=== PATIENT | female | born 1950 | race African-American/Black ===

== ENCOUNTER 2016-10-26 15:08 | Emergency (ER) | payer OTHER, BC ==
[2016-10-26 15:12] VITALS: BP 197/88; PULSE 65; TEMP 98; BMI 54.6
--- NOTE | 2016-10-26 15:26 | PDOC ---
History of Present Illness - General History Source: Patient Exam Limitations: No Limitations - History of Present Illness Initial Comments: 10/26/16 16:38 The patient is a 66 year old female, with a significant past medical history of Atrial Fibrillation (On Coumadin), HTN, NIDDM, who presents to the emergency department with abdominal pain and vomiting. The patient was seen in ER last night and was evaluated however refused CT scan and was discharged after taking Pepcid and Zofran. The patient states her pain has returned and progressively worsened. The patient reports 2 vomiting episodes. The patient presents to the ED for further evaluation. She denies chest pain, headache or dizziness. She denies fever, chills, diarrhea or constipation. She denies dysuria, frequency, urgency or hematuria. <Merary Walker - Last Filed: 10/26/16 16:38> <Cynthia Kruse - Last Filed: 10/26/16 18:08> <Brett Stubbs - Last Filed: 10/26/16 20:48> <Jacinda Tipton - Last Filed: 10/26/16 21:17> - General Chief Complaint: Pain Stated Complaint: REVISIT/ ABD PAIN Time Seen by Provider: 10/26/16 15:26 Past History <Merary Walker - Last Filed: 10/26/16 16:38> - Past Medical History Anemia: Yes Asthma: No Cancer: No Cardiac Disorders: Yes (HISTORY OF AFIB WITH CARDIOVERSION) CVA: No COPD: (SLEEP APNEA) CHF: No Dementia: No Diabetes: Yes GI Disorders: Yes (REFLUX,ESOPHAGITIS,HIATAL HERNIA) Disorders: No HTN: Yes Hypercholesterolemia: No Liver Disease: No Seizures: No Thyroid Disease: No Other medical history: obesity - Surgical History Abdominal Surgery: No Appendectomy: No Cardiac Surgery: No Cholecystectomy: No Lung Surgery: No Neurologic Surgery: No Orthopedic Surgery: Yes (ARMOND KNEE REPLACEMENT) - Psycho/Social/Smoking Cessation Hx Anxiety: No Suicidal Ideation: No Smoking Status: No Smoking History: Never smoked Have you smoked in the past 12 months: No Number of Cigarettes Smoked Daily: 0 Information on smoking cessation initiated: No Hx Alcohol Use: Yes (occasional) Drug/Substance Use Hx: No Substance Use Type: None Hx Substance Use Treatment: No <Cynthia Kruse - Last Filed: 10/26/16 18:08> <Brett Stubbs - Last Filed: 10/26/16 20:48> <Jacinda Tipton - Last Filed: 10/26/16 21:17> - Past Medical History Allergies/Adverse Reactions: Allergies Allergy/AdvReac Type Severity Reaction Status Date / Time No Known Allergies Allergy Verified 10/26/16 15:12 Home Medications: Ambulatory Orders Hydrochlorothiazide [Hctz -] 25 mg PO DAILY 03/16/12 Metformin HCl [Glucophage -] 500 mg PO DAILY 12/02/13 Atenolol [Tenormin -] 25 mg PO DAILY 04/21/15 Atorvastatin Ca [Lipitor] 40 mg PO DAILY 04/21/15 Warfarin Sodium 6 mg PO ASDIR 01/19/16 Warfarin Sodium 9 mg PO ASDIR 01/19/16 Diltiazem Cd [Cardizem Cd -] 120 mg PO BID 08/21/16 Famotidine [Pepcid -] 20 mg PO BID #14 tablet 10/26/16 Ibuprofen 600 mg PO QID PRN #30 tablet 10/26/16 Ondansetron [Zofran *Odt*] 8 mg SL TID PRN #15 od.tablet 10/26/16 Ondansetron [Zofran Odt -] 4 mg SL BID PRN #14 od.tablet 10/26/16 Pantoprazole Sodium [Protonix] 40 mg PO DAILY #30 tablet. 10/26/16 Review of Systems - Review of Systems Able to Perform ROS?: Yes Comments:: 10/26/16 16:39 Constitutional - Pt denies Fever, Chills, weakness, HEENT: Denies vision changes, sore throat RESPIRATORY: Denies cough, sob, hemoptysis CARDIAC: Denies chest pain, palpitations, light headedness, leg swelling ABD/GI: + abd pain, nausea, vomiting. Denies blood per rectum, melena, diarrhea : Denies dysuria, frequency, discharge MUSCULOSKELETAL - Denies back pain, joint swelling SKIN - Denies bruising, erythema, rash NEUROLOGICAL: Denies headache, numbness, focal weakness, tingling, ataxia, weakness HEMATOLOGIC: Denies anemia, easy bruising, easy bleeding <Merary Walker - Last Filed: 10/26/16 16:38> *Physical Exam - Vital Signs Last Vital Signs Temp Pulse Resp BP Pulse Ox 98 F 65 18 197/88 96 10/26/16 15:10 10/26/16 15:10 10/26/16 15:10 10/26/16 15:10 10/26/16 15:10 - Physical Exam Comments: 10/26/16 16:39 GENERAL: The patient is awake, alert, and fully oriented, Nontoxic - in no acute distress. HEAD: Normocephalic, atraumatic. EYES: Extraocular movements intact, sclera anicteric, conjunctiva clear. ENT: Normal voice, moist mucous membranes. NECK: Normal range of motion, supple without lymphadenopathy, JVD, or masses. LUNGS: Breath sounds equal, clear to auscultation bilaterally. No wheezes, no crackles, no rales. HEART: Regular rate and rhythm, normal S1 and S2 without murmur, rub or gallop. ABDOMEN: +LUQ discomfort. +Epigastric discomfort. No guarding, no rebound. No masses. EXTREMITIES: Normal range of motion, no edema. No clubbing or cyanosis. No cords , erythema, or tenderness. NEUROLOGICAL: Fully Oriented, Alert, Normal Mood/Affect, Motor Strength 5/5. No facial asymmetry, Normal speech. SKIN: Warm, Dry, normal turgor, no rashes or lesions noted. <Merary Walker - Last Filed: 10/26/16 16:38> - Vital Signs Last Vital Signs Temp Pulse Resp BP Pulse Ox 98 F 65 18 197/88 96 10/26/16 15:10 10/26/16 15:10 10/26/16 15:10 10/26/16 15:10 10/26/16 15:10 <Cynthia Kruse - Last Filed: 10/26/16 18:08> - Vital Signs Last Vital Signs Temp Pulse Resp BP Pulse Ox 98 F 65 18 197/88 96 10/26/16 15:10 10/26/16 15:10 10/26/16 15:10 10/26/16 15:10 10/26/16 15:10 <Brett Stubbs - Last Filed: 10/26/16 20:48> - Vital Signs Last Vital Signs Temp Pulse Resp BP Pulse Ox 98 F 65 18 197/88 96 10/26/16 15:10 10/26/16 15:10 10/26/16 15:10 10/26/16 15:10 10/26/16 15:10 <Jacinda Tipton - Last Filed: 10/26/16 21:17> ED Treatment Course - LABORATORY CBC & Chemistry Diagram: 10/26/16 15:46 10/26/16 15:46 - ADDITIONAL ORDERS Additional order review: Laboratory Results 10/26/16 10/26/16 15:46 15:46 INR 1.78 H Sodium Cancelled Potassium Cancelled Chloride Cancelled Carbon Dioxide Cancelled Anion Gap Cancelled BUN Cancelled Creatinine Cancelled Creat Clearance w eGFR Cancelled Random Glucose Cancelled Calcium Cancelled Total Bilirubin Cancelled AST Cancelled ALT Cancelled Alkaline Phosphatase Cancelled Total Protein Cancelled Albumin Cancelled 10/26/16 15:46 RBC 3.94 MCV 96.1 H MCHC 33.1 RDW 14.1 MPV 8.8 Neutrophils % 77.4 Lymphocytes % 15.0 D Monocytes % 6.7 D Eosinophils % 0.1 Basophils % 0.8 <Merary Walker - Last Filed: 10/26/16 16:38> - LABORATORY CBC & Chemistry Diagram: 10/26/16 15:46 10/26/16 16:31 <Cynthia Kruse - Last Filed: 10/26/16 18:08> - LABORATORY CBC & Chemistry Diagram: 10/26/16 15:46 10/26/16 16:31 - ADDITIONAL ORDERS Additional order review: Laboratory Results 10/26/16 10/26/16 10/26/16 16:31 15:46 15:46 INR 1.78 H Sodium 143 Cancelled Potassium 3.5 Cancelled Chloride 103 Cancelled Carbon Dioxide 29 Cancelled Anion Gap 11 Cancelled BUN 14 Cancelled Creatinine 0.8 Cancelled Creat Clearance w eGFR > 60 Cancelled Random Glucose 124 H Cancelled Calcium 9.1 Cancelled Total Bilirubin 0.7 Cancelled AST 24 Cancelled ALT 24 Cancelled Alkaline Phosphatase 73 Cancelled Total Protein 7.4 Cancelled Albumin 3.6 Cancelled Total Amylase 51 Lipase 86 10/26/16 15:46 RBC 3.94 MCV 96.1 H MCHC 33.1 RDW 14.1 MPV 8.8 Neutrophils % 77.4 Lymphocytes % 15.0 D Monocytes % 6.7 D Eosinophils % 0.1 Basophils % 0.8 - Medications Given in the ED: ED Medications Discontinued Medications Generic Name Dose Route Start Last Admin Trade Name Wiliam PRN Reason Stop Dose Admin Pantoprazole Sodium 40 mg/ 100 mls @ 200 mls/hr 10/26/16 16:43 10/26/16 16:53 Sodium Chloride IVPB 10/26/16 17:12 200 mls/hr ONCE ONE Administration <Brett Stubbs - Last Filed: 10/26/16 20:48> - LABORATORY CBC & Chemistry Diagram: 10/26/16 15:46 10/26/16 16:31 - ADDITIONAL ORDERS Additional order review: Laboratory Results 10/26/16 10/26/16 10/26/16 16:31 15:46 15:46 INR 1.78 H Sodium 143 Cancelled Potassium 3.5 Cancelled Chloride 103 Cancelled Carbon Dioxide 29 Cancelled Anion Gap 11 Cancelled BUN 14 Cancelled Creatinine 0.8 Cancelled Creat Clearance w eGFR > 60 Cancelled Random Glucose 124 H Cancelled Calcium 9.1 Cancelled Total Bilirubin 0.7 Cancelled AST 24 Cancelled ALT 24 Cancelled Alkaline Phosphatase 73 Cancelled Total Protein 7.4 Cancelled Albumin 3.6 Cancelled Total Amylase 51 Lipase 86 10/26/16 15:46 RBC 3.94 MCV 96.1 H MCHC 33.1 RDW 14.1 MPV 8.8 Neutrophils % 77.4 Lymphocytes % 15.0 D Monocytes % 6.7 D Eosinophils % 0.1 Basophils % 0.8 - RADIOLOGY Radiograph Interpretation: 10/26/16 20:40 Copy Machine Operator: (charisse) Report Date: 10/26/2016 18:42:00 Report Status: Preliminary Begin of Report Content Referring Physician: Brett Stubbs Patient Name: Leandro Chatman THIS IS A PRELIMINARY REPORT FROM [facility] DATE OF SERVICE: 2016-10-26 18:42:18.0 I MAGES: [id number] EXAM: CT ABDOMEN AND PELVIS WITHOUT CONTRAST REASON FOR EXAM: Abdominal pain right side COMPARISON: None FINDINGS: Lower lung isaac are clear. There are no gallstones identified. Fatty liver. The pancreas, spleen and adrenal glands are grossly unremarkable given the limitation of this non contrast exam. 2 mm punctate lower pole left renal stone. The 7 x 5 x 9 mm proximal right ureteral stone resulting in moderate to severe hydroureteronephrosis at the level of L3-4. Large 9 x 14 x 17 mm stone within the lower pole of right kidney. Prominent right extra renal pelvis. Abdominal aorta without AAA. There is no retroperitoneal hemorrhage The appendix is normal. Evaluation of the GI tract is limited without oral contrast. No evidence of bowel obstruction, ascites, abscess, free air or diverticulitis. Bladder unremarkable. Lumbar spine and bony pelvis are intact. IMPRESSION: 7 x 5 x 9 mm proximal right ureteral stone resulting in moderate to severe hydroureteronephrosis at the level of L3-4. Punctate left renal stone. Large 14 mm right renal stone. Appendix is normal. Fatty liver. THIS DOCUMENT HAS BEEN ELECTRONICALLY SIGNED Jana Velasco D.O. 10/26/2016 19:29 SELENA Corado Please call [facility] [phone] ([phone]) with questions. End of Report Content 10/26/16 21:16 - Medications Given in the ED: ED Medications Discontinued Medications Generic Name Dose Route Start Last Admin Trade Name Santoq PRN Reason Stop Dose Admin Pantoprazole Sodium 40 mg/ 100 mls @ 200 mls/hr 10/26/16 16:43 10/26/16 16:53 Sodium Chloride IVPB 10/26/16 17:12 200 mls/hr ONCE ONE Administration Ketorolac Tromethamine 30 mg 10/26/16 20:19 10/26/16 20:37 Toradol Injection - IVPUSH 10/26/16 20:20 30 mg ONCE ONE Administration Ondansetron HCl 4 mg 10/26/16 20:18 10/26/16 20:36 Zofran Injection IVPUSH 10/26/16 20:19 4 mg ONCE ONE Administration <Jacinda Tipton - Last Filed: 10/26/16 21:17> Medical Decision Making - Medical Decision Making 10/26/16 16:48 I, Dr. Cynthia Kruse, attest that the scribes documentation that appears above has been prepared under my direction and personally reviewed by me. I confirmed that the note above accurately reflects all work, treatment, procedures, and medical decision-making performed by me. 10/26/16 18:08 Pt seen and examined at bedside still c/o left upper quadrant pain radiating to her back, pt was in ed last night with same complaints, labs and chart from last night reviewed. CBC from today unchanged from last night, chemistries, amylase and lipase pending. Sonogram ordered to evaluate for gallstones, pt's pain may be from her pancreas. Case endorsed to oncoming physician to f/u pending labs, sonogram and make final disposition. <Cynthia Kruse - Last Filed: 10/26/16 18:08> - Medical Decision Making 10/26/16 20:[address] Garcia who wants to see her in the office Friday or Friday. she can return if worse. <Brett Stubbs - Last Filed: 10/26/16 20:48> *DC/Admit/Observation/Transfer - Attestations Scribe Attestion: 10/26/16 16:39 Documentation prepared by Merary Walker, acting as medical aide for Cynthia Kruse MD <Merary Walker - Last Filed: 10/26/16 16:38> <Cynthia Kruse - Last Filed: 10/26/16 18:08> - Discharge Dispostion Admit: No <Brett Stubbs - Last Filed: 10/26/16 20:48> <Jacinda Tipton - Last Filed: 10/26/16 21:17> Diagnosis at time of Disposition: Biliary colic - Discharge Dispostion Disposition: HOME Condition at time of disposition: Stable - Prescriptions Prescriptions: Ibuprofen 600 mg PO QID PRN #30 tablet PRN Reason: Pain Pantoprazole Sodium [Protonix] 40 mg PO DAILY #30 tablet. Ondansetron [Zofran Odt -] 4 mg SL BID PRN #14 od.tablet PRN Reason: Nausea And/Or Vomiting - Referrals Referrals: Bobbi Fried MD [Primary Care Provider] - Sander Garcia MD [Staff Physician] - - Patient Instructions Printed Discharge Instructions: DI for Gallstones Additional Instructions: See Dr. Garcia on Friday or Friday in the office.
[2016-10-26 15:52] LABS: BASOPHIL 0.8 % (0-2.0); EOSINOPHIL 0.1 % (0-4.5); MCH 31.8 pg (25.7-33.7); MCHC 33.1 g/dl (32.0-36.0); MEAN CELL VOLUME 96.1 fl (80-96); MEAN PLT VOLUME 8.8 fl (7.5-11.1); NEUTROPHILS 77.4 % (42.8-82.8); PLATELET COUNT 220 K/MM3 (134-434); RDW 14.1 % (11.6-15.6); WHITE BLOOD COUNT 9.6 K/mm3 (4.0-10.0)
[2016-10-26 16:20] LABS: INR 1.78 (0.82-1.09); PROTHROMBIN TIME (PATIENT) 19.8 SEC (9.98-11.88)
[2016-10-26] MEDS ORDERED: PANTOPRAZOLE SODIUM 40 MG in SODIUM CHLORIDE 100 ML IVPB ONE (16:43)
[2016-10-26] MEDS ORDERED: PANTOPRAZOLE SODIUM 100 ML IVPB ONE (16:47)
[2016-10-26 17:02] LABS: ALBUMIN 3.6 g/dl (3.4-5.0); ALK PHOS 73 U/L (45-117); AMYLASE 51 U/L (25-115); ANION GAP 11 (8-16); BILIRUBIN,TOTAL 0.7 mg/dL (0.2-1.0); CALCIUM 9.1 mg/dL (8.5-10.1); CO2 29 mmol/L (21-32); CREATININE 0.8 mg/dL (0.55-1.02); GLUCOSE,RANDOM 124 mg/dL (74-106); SGOT/AST 24 U/L (15-37); SGPT/ALT 24 U/L (12-78); TOT PROT 7.4 g/dl (6.4-8.2)
[2016-10-26] MEDS ORDERED: ONDANSETRON 4 MG/2 ML VIAL IVPUSH ONE (20:18)
[2016-10-26] MEDS ORDERED: KETOROLAC TROMETHAMINE 30 MG/1 ML VIAL IVPUSH ONE (20:19)
[2016-10-26] MEDS ORDERED: KETOROLAC TROMETHAMINE 30 MG/1 ML VIAL ONE ×2 (20:28)
[2016-10-26] MEDS ORDERED: ONDANSETRON 4 MG/2 ML VIAL ONE (20:28)
== END 2016-10-26 21:10 | disposition home or self-care (01) ==
LOC: JER 15:08
PROC: 3E033GC Introduction of Other Therapeutic Substance into Peripheral Vein, Percutaneous Approach (ICD-10-PCS; principal; 2016-10-26)
PROC: 3E0333Z Introduction of Anti-inflammatory into Peripheral Vein, Percutaneous Approach (ICD-10-PCS; 2016-10-26)
PROC: 3E033GC Introduction of Other Therapeutic Substance into Peripheral Vein, Percutaneous Approach (ICD-10-PCS; 2016-10-26)
DX: K80.50 Calculus of bile duct without cholangitis or cholecystitis without obstruction (principal); I48.91 Unspecified atrial fibrillation; Z79.01 Long term (current) use of anticoagulants; I10 Essential (primary) hypertension; E11.9 Type 2 diabetes mellitus without complications; Z79.84 Long term (current) use of oral hypoglycemic drugs; K21.0 Gastro-esophageal reflux disease with esophagitis
CPT/HCPCS: 36415; 74020-TC; 76705-TC; 80053; 81003; 81015; 82150; 82550; 82553; 83690; 84484; 85025; 85610; 87086; 96365; 96375; 99281-25; 99282-25

== ENCOUNTER 2016-11-30 20:06 | Inpatient (IN) | payer OTHER, BC ==
[2016-11-30 20:14] VITALS: BMI 53.4
--- NOTE | 2016-11-30 20:16 | PDOC ---
[id number] No Limitations - History of Present Illness Initial Comments: 11/30/16 20:36 The patient is a 66 year old morbidly obese female, with a significant past medical history of Atrial Fibrillation (On Coumadin), HTN, NIDDM, who presents to the emergency department with nausea, vomiting since 2 PM. Patient states she only ate chicken soup during the day. Patient denies fever, chills, diarrhea, hematochezia. Denies abdominal pain, back pain. Patient states she is need of gall bladder removal surgery. She was here in October for abdominal pain. Gallstones were shown on Ultrasound exam. PCP: Dr. Fried <Erwin Vasquez - Last Filed: 11/30/16 22:45> <Mikala Mota - Last Filed: 12/07/16 20:38> - General Chief Complaint: Pain Stated Complaint: ABD PAIN Time Seen by Provider: 11/30/16 20:16 Past History <Erwin Vasquez - Last Filed: 11/30/16 22:45> - Past Medical History Anemia: Yes Asthma: No Cancer: No Cardiac Disorders: Yes (HISTORY OF AFIB WITH CARDIOVERSION) CVA: No COPD: (SLEEP APNEA) CHF: No Dementia: No Diabetes: Yes GI Disorders: Yes (REFLUX,ESOPHAGITIS,HIATAL HERNIA) Disorders: No HTN: Yes Hypercholesterolemia: No Liver Disease: No Seizures: No Thyroid Disease: No - Surgical History Abdominal Surgery: No Appendectomy: No Cardiac Surgery: No Cholecystectomy: No Lung Surgery: No Neurologic Surgery: No Orthopedic Surgery: Yes (ARMOND KNEE REPLACEMENT) - Psycho/Social/Smoking Cessation Hx Anxiety: No Suicidal Ideation: No Smoking Status: No Smoking History: Never smoked Have you smoked in the past 12 months: No Number of Cigarettes Smoked Daily: 0 Hx Alcohol Use: Yes (occasional) Drug/Substance Use Hx: No Substance Use Type: None Hx Substance Use Treatment: No <Mikala Mota - Last Filed: 12/07/16 20:38> - Past Medical History Allergies/Adverse Reactions: Allergies Allergy/AdvReac Type Severity Reaction Status Date / Time No Known Allergies Allergy Verified 11/30/16 20:14 Home Medications: Ambulatory Orders Hydrochlorothiazide [Hctz -] 25 mg PO DAILY 03/16/12 Metformin HCl [Glucophage -] 500 mg PO DAILY 12/02/13 Atenolol [Tenormin -] 25 mg PO DAILY 04/21/15 Atorvastatin Ca [Lipitor] 40 mg PO DAILY 04/21/15 Warfarin Sodium 6 mg PO ASDIR 01/19/16 Warfarin Sodium 9 mg PO ASDIR 01/19/16 Diltiazem Cd [Cardizem Cd -] 120 mg PO BID 08/21/16 Famotidine [Pepcid -] 20 mg PO BID #14 tablet 10/26/16 Ibuprofen 600 mg PO QID PRN #30 tablet 10/26/16 Ondansetron [Zofran *Odt*] 8 mg SL TID PRN #15 od.tablet 10/26/16 Ondansetron [Zofran Odt -] 4 mg SL BID PRN #14 od.tablet 10/26/16 Pantoprazole Sodium [Protonix] 40 mg PO DAILY #30 tablet. 10/26/16 Review of Systems - Review of Systems Able to Perform ROS?: Yes Comments:: 11/30/16 20:36 GENERAL/CONSTITUTIONAL: No fever or chills. No weakness. HEAD, EYES, EARS, NOSE AND THROAT: No change in vision. No ear pain or discharge. No sore throat. CARDIOVASCULAR: No chest pain or shortness of breath. RESPIRATORY: No cough, wheezing, or hemoptysis. GASTROINTESTINAL: + nausea, vomiting. No diarrhea or constipation. GENITOURINARY: No dysuria, frequency, or change in urination. MUSCULOSKELETAL: No joint or muscle swelling or pain. No neck or back pain. SKIN: No rash NEUROLOGIC: No headache, vertigo, loss of consciousness, or change in strength/ sensation. ENDOCRINE: No increased thirst. No abnormal weight change. HEMATOLOGIC/LYMPHATIC: No anemia, easy bleeding, or history of blood clots. ALLERGIC/IMMUNOLOGIC: No hives or skin allergy. <Erwin Vasquez - Last Filed: 11/30/16 22:45> *Physical Exam - Vital Signs Last Vital Signs Temp Pulse Resp BP Pulse Ox 97.3 F L 56 L 18 149/68 99 11/30/16 20:11 11/30/16 20:11 11/30/16 20:11 11/30/16 20:11 11/30/16 20:11 - Physical Exam Comments: 11/30/16 20:36 GENERAL: Awake, alert, and fully oriented, in no acute distress. Morbidly Obese HEAD: No signs of trauma EYES: PERRLA, EOMI, sclera anicteric, conjunctiva clear ENT: Auricles normal inspection, hearing grossly normal, nares patent, oropharynx clear without exudates. Moist mucosa NECK: Normal ROM, supple, no lymphadenopathy, JVD, or masses LUNGS: Breath sounds equal, clear to auscultation bilaterally. No wheezes, and no crackles HEART: Regular rate and rhythm, normal S1 and S2, no murmurs, rubs or gallops ABDOMEN: Soft, nontender, normoactive bowel sounds. No guarding, no rebound. No masses EXTREMITIES: Normal range of motion, no edema. No clubbing or cyanosis. No cords, erythema, or tenderness NEUROLOGICAL: Cranial nerves II through XII grossly intact. Normal speech, normal gait SKIN: Warm, Dry, normal turgor, no rashes or lesions noted. <Erwin Vasquez - Last Filed: 11/30/16 22:45> - Vital Signs Last Vital Signs Temp Pulse Resp BP Pulse Ox 97.3 F L 56 L 18 149/68 99 11/30/16 20:11 11/30/16 20:11 11/30/16 20:11 11/30/16 20:11 11/30/16 20:11 <Mikala Mota - Last Filed: 12/07/16 20:38> ED Treatment Course - LABORATORY CBC & Chemistry Diagram: 11/30/16 21:10 11/30/16 21:10 <Erwin Vasquez - Last Filed: 11/30/16 22:45> - LABORATORY CBC & Chemistry Diagram: 12/07/16 08:15 12/07/16 08:15 <Mikala Mota - Last Filed: 12/07/16 20:38> Medical Decision Making - Medical Decision Making 11/30/16 22:[address] Fried at 22:26. 11/30/16 22:[address] Fried at 22:38. <Erwin Vasquez - Last Filed: 11/30/16 22:45> - Medical Decision Making 12/07/16 20:35 Pt comes with N/V and abd pain. She was found to have pancreatitis; elevated lipase. Pt has hypokalemia. She has no signs of pseudocysts on imaging. She will be admitted to her PMD and she will be kept NPO and hydrated. Pain control. <Mikala Mota - Last Filed: 12/07/16 20:38> *DC/Admit/Observation/Transfer - Attestations Scribe Attestion: 11/30/16 20:37 Documentation prepared by Erwin Vasquez, acting as medical care evaluation specialist for Mikala Mota MD. <Erwin Vasquez - Last Filed: 11/30/16 22:45> - Discharge Dispostion Admit: Yes <Mikala Mota - Last Filed: 12/07/16 20:38> Diagnosis at time of Disposition: Vomiting, Atrial fibrillation Pancreatitis Qualifiers: Pancreatitis type: biliary - Discharge Dispostion Condition at time of disposition: Poor - Referrals
[2016-11-30] MEDS ORDERED: SODIUM CHLORIDE 0.9% 500 ML INFUS.BAG IV ONE (20:35)
[2016-11-30] MEDS ORDERED: morphine CARPU-JECT 2 MG/1 ML DISP.SYRIN IVPUSH ONE ×2 (20:35→23:00)
[2016-11-30] MEDS ORDERED: METOCLOPRAMIDE HCL INJECTION 10 MG/2 ML VIAL IVPB ONE (20:35)
[2016-11-30] MEDS ORDERED: METOCLOPRAMIDE HCL INJECTION 10 MG/2 ML VIAL ONE (20:41)
[2016-11-30] MEDS ORDERED: morphine CARPU-JECT 2 MG/1 ML DISP.SYRIN ONE ×2 (20:41→22:59)
[2016-11-30 21:22] LABS: BASOPHIL 0.2 % (0-2.0); EOSINOPHIL 0.2 % (0-4.5); MCH 32.4 pg (25.7-33.7); MCHC 33.9 g/dl (32.0-36.0); MEAN CELL VOLUME 95.6 fl (80-96); MEAN PLT VOLUME 8.7 fl (7.5-11.1); PLATELET COUNT 238 K/MM3 (134-434); RDW 13.9 % (11.6-15.6); WHITE BLOOD COUNT 11.9 K/mm3 (4.0-10.0)
[2016-11-30 21:51] LABS: ALBUMIN 3.5 g/dl (3.4-5.0); AMYLASE 226 U/L (25-115); ANION GAP 12 (8-16); CALCIUM 8.7 mg/dL (8.5-10.1); CO2 27 mmol/L (21-32); CREATININE 0.7 mg/dL (0.55-1.02); GLUCOSE,RANDOM 192 mg/dL (74-106); SGOT/AST 375 U/L (15-37); SGPT/ALT 172 U/L (12-78)
[2016-11-30 21:53] LABS: ALK PHOS 139 U/L (45-117); TOT PROT 7.3 g/dl (6.4-8.2)
[2016-11-30] MEDS ORDERED: MAGNESIUM SULF 50% (8.12 MEQ/2 ML-1 GM VIAL) IVPB ONE (21:55)
[2016-11-30] MEDS ORDERED: POTASSIUM CHLORIDE TABS 20 MEQ TABLET.ER (FP) PO ONE (21:56)
[2016-11-30] MEDS ORDERED: MAGNESIUM SULF 50% (8.12 MEQ/2 ML-1 GM VIAL) ONE (21:59)
[2016-11-30] MEDS ORDERED: KCL 10 MEQ IVPB 100 ML IVPB ONE (22:57)
[2016-11-30] MEDS ORDERED: ONDANSETRON 4 MG/2 ML VIAL ONE (23:00)
[2016-11-30] MEDS ORDERED: ONDANSETRON 4 MG/2 ML VIAL IVPB ONE (23:00)
[2016-11-30] MEDS: KCL 10 MEQ IVPB 100 ML IVPB SCH (23:11)
[2016-12-01] MEDS ORDERED: ONDANSETRON 4 MG/2 ML VIAL IVPB PRN (00:52)
[2016-12-01] MEDS: KCL 10 MEQ IVPB 100 ML IVPB SCH ×6 (01:51→14:54)
[2016-12-01] MEDS ORDERED: PIPERACILLIN/TAZOB 3.375 GM/50 ML PRE-DOCKED IVPB ONE (02:00)
[2016-12-01] MEDS: D5-1/2NS+20 MEQ KCL - 1,000 ML IV SCH (03:00)
[2016-12-01] MEDS ORDERED: morphine CARPU-JECT 2 MG/1 ML DISP.SYRIN IVPUSH ONE (03:36)
[2016-12-01] MEDS ORDERED: morphine CARPU-JECT 2 MG/1 ML DISP.SYRIN ONE (03:53)
[2016-12-01] MEDS ORDERED: KCL 10 MEQ IVPB 100 ML IVPB SCH (04:15)
[2016-12-01 08:55] LABS: INR 2.69 (0.82-1.09); PROTHROMBIN TIME (PATIENT) 30.2 SEC (9.98-11.88)
--- NOTE | 2016-12-01 09:17 | CON.CARD ---
Consult Consult Specialty:: Cardiology Referred by:: Dr. Fried Reason for Consultation:: Paroxysmal atrial fibrillation, pre-operative cardiac evaluation - History of Present Illness Chief Complaint: Abdominal pain and nausea History of Present Illness: 66 yo female with morbid obesity, HTN, paroxysmal atrial fibrillation (on coumadin), HTN, DM type 2, who was admitted yesterday with abdominal discomfort , nausea, and vomiting which began yesterday. Patient with known history of gallstones. Patient with elevated lipase and transaminases consistent with pancreatitis. Currently pending cholecystectomy by Dr. Romano from general surgery. Currently denies any chest pain or dyspnea. Patient was last seen by Dr. Ephraim Aguero ([facility] cardiology) on 09/25/[address] [place] [address]. PCP: Dr. Fried - History Source History Provided By: Patient Limitations to Obtaining History: No Limitations - Past Medical History Cardio/Vascular: Yes: AFIB (paroxysmal), Pulmonary Hypertension, HTN Pulmonary: Yes: Sleep Apnea (on CPAP) Gastrointestinal: Yes: Constipation, GERD, Hemorrhoids Endocrine: Yes: Diabetes Mellitus - Past Surgical History Past Surgical History: Yes: Hysterectomy Additional Surgical History: Bilateral total knee arthroplasty - Alcohol/Substance Use Hx Alcohol Use: Yes (occasional) History of Substance Use: reports: None - Smoking History Smoking history: Never smoked Have you smoked in the past 12 months: No Aproximately how many cigarettes per day: 0 Home Medications - Allergies Allergies/Adverse Reactions: Allergies Allergy/AdvReac Type Severity Reaction Status Date / Time No Known Allergies Allergy Verified 11/30/16 20:14 - Home Medications Home Medications: Ambulatory Orders Hydrochlorothiazide [Hctz -] 25 mg PO DAILY 03/16/12 Metformin HCl [Glucophage -] 500 mg PO DAILY 12/02/13 Atenolol [Tenormin -] 25 mg PO DAILY 04/21/15 Atorvastatin Ca [Lipitor] 40 mg PO DAILY 04/21/15 Warfarin Sodium 6 mg PO ASDIR 01/19/16 Warfarin Sodium 9 mg PO ASDIR 01/19/16 Diltiazem Cd [Cardizem Cd -] 120 mg PO BID 08/21/16 Famotidine [Pepcid -] 20 mg PO BID #14 tablet 10/26/16 Ibuprofen 600 mg PO QID PRN #30 tablet 10/26/16 Ondansetron [Zofran *Odt*] 8 mg SL TID PRN #15 od.tablet 10/26/16 Ondansetron [Zofran Odt -] 4 mg SL BID PRN #14 od.tablet 10/26/16 Pantoprazole Sodium [Protonix] 40 mg PO DAILY #30 tablet. 10/26/16 Family Disease History - Family Disease History Family Disease History: Heart Disease: Mother (CHF) Review of Systems - Review of Systems Constitutional: reports: No Symptoms Eyes: reports: No Symptoms HENT: reports: No Symptoms Neck: reports: No Symptoms Cardiovascular: reports: No Symptoms Respiratory: reports: No Symptoms Gastrointestinal: reports: Abdominal Pain, Nausea, Vomiting Genitourinary: reports: No Symptoms Neurological: reports: No Symptoms Endocrine: reports: No Symptoms Hematology/Lymphatic: reports: No Symptoms Psychiatric: reports: No Symptoms Vital Signs: Vital Signs Temperature 98.9 F 12/01/16 05:36 Pulse Rate 76 12/01/16 05:36 Respiratory Rate 18 12/01/16 05:36 Blood Pressure 136/68 12/01/16 05:36 O2 Sat by Pulse Oximetry (%) 99 12/01/16 01:28 Constitutional: Yes: No Distress, Obese Eyes: Yes: Conjunctiva Clear, EOM Intact HENT: Yes: Atraumatic, Normocephalic Respiratory: Yes: CTA Bilaterally Gastrointestinal: Yes: Normal Bowel Sounds, Soft Cardiovascular: Yes: Regular Rate and Rhythm Heart Sounds: Yes: S1, S2 Murmur: No: Systolic Murmur Edema: No Neurological: Yes: Alert, Oriented, Cran Nerves II-XII Intact ...Motor Strength: WNL Psychiatric: Yes: WNL - Other Data Labs, Other Data: INR, PTT INR 2.69 (0.82-1.09) H D 12/01/16 06:00 11/30/16 ECG: Sinus with non-specific T wave abnormalities Echo: Report Reviewed (09/2014 Echo: LVEF 71%, mod LAE, normal MV, RVSP 16 mmHg) Imaging - Results Chest X-ray: Image Reviewed Assessment/Plan 66 yo female with morbid obesity, HTN, paroxysmal atrial fibrillation (on coumadin), HTN, DM type 2. Admitted with pancreatitis. Currently pending cholecystectomy by Dr. Romano from general surgery. Patient was last seen by Dr. Ephraim Aguero ([facility] cardiology) on 09/25/[address] [place] [address]. RECS: Patient does not have any cardiac contraindications to her pending cholecystectomy and may proceed without further cardiac work-up. Coumadin currently being held in preparation for pending surgery. Continue atenolol and diltiazem. Will hold patient's HCTZ as patient is currently NPO except for meds. May resume coumadin post-operatively when OK per surgery. Replace lytes as needed. Further recs as per primary care team and general surgery Will follow. Please call with questions
[2016-12-01 09:27] LABS: ALBUMIN 3.1 g/dl (3.4-5.0); ALK PHOS 190 U/L (45-117); ANION GAP 15 (8-16); BILIRUBIN,TOTAL 2.2 mg/dL (0.2-1.0); CALCIUM 8.4 mg/dL (8.5-10.1); CO2 25 mmol/L (21-32); CREATININE 0.9 mg/dL (0.55-1.02); GLUCOSE,RANDOM 141 mg/dL (74-106); TOT PROT 6.6 g/dl (6.4-8.2)
[2016-12-01 09:30] LABS: AMYLASE 858 U/L (25-115); SGOT/AST 637 U/L (15-37); SGPT/ALT 439 U/L (12-78)
[2016-12-01] MEDS: PANTOPRAZOLE 40 MG TABLET (FP) PO SCH (10:23)
[2016-12-01] MEDS: ATENOLOL 50 MG TABLET (FP) PO SCH (10:23)
--- NOTE | 2016-12-01 10:25 | HP ---
Admitting History and Physical - Admission History of Present Illness: 66 year old morbidly obese female, with a significant past medical history of Atrial Fibrillation (On Coumadin), HTN, NIDDM, who presents to the emergency department with nausea, vomiting since 2 PM . Patient states she only ate chicken soup during the day. Patient states she is need of gall bladder removal surgery. She was here in October for abdominal pain. Gallstones were shown on Ultrasound exam. LESS PAIN THIS AM--NO VOMITING - Past Medical History Cardiovascular: Yes: AFIB (paroxysmal), Pulmonary Hypertension, HTN Pulmonary: Yes: Sleep Apnea (on CPAP) Gastrointestinal: Yes: Constipation, GERD, Hemorrhoids Endocrine: Yes: Diabetes Mellitus - Past Surgical History Past Surgical History: Yes: Hysterectomy - Smoking History Smoking history: Never smoked Have you smoked in the past 12 months: No Aproximately how many cigarettes per day: 0 - Alcohol/Substance Use Hx Alcohol Use: Yes (occasional) History of Substance Use: reports: None Home Medications - Allergies Allergies/Adverse Reactions: Allergies Allergy/AdvReac Type Severity Reaction Status Date / Time No Known Allergies Allergy Verified 11/30/16 20:14 - Home Medications Home Medications: Ambulatory Orders Hydrochlorothiazide [Hctz -] 25 mg PO DAILY 03/16/12 Metformin HCl [Glucophage -] 500 mg PO DAILY 12/02/13 Atenolol [Tenormin -] 25 mg PO DAILY 04/21/15 Atorvastatin Ca [Lipitor] 40 mg PO DAILY 04/21/15 Warfarin Sodium 6 mg PO ASDIR 01/19/16 Warfarin Sodium 9 mg PO ASDIR 01/19/16 Diltiazem Cd [Cardizem Cd -] 120 mg PO BID 08/21/16 Famotidine [Pepcid -] 20 mg PO BID #14 tablet 10/26/16 Ibuprofen 600 mg PO QID PRN #30 tablet 10/26/16 Ondansetron [Zofran *Odt*] 8 mg SL TID PRN #15 od.tablet 10/26/16 Ondansetron [Zofran Odt -] 4 mg SL BID PRN #14 od.tablet 10/26/16 Pantoprazole Sodium [Protonix] 40 mg PO DAILY #30 tablet. 10/26/16 Family Disease History - Family Disease History Family Disease History: Heart Disease: Mother (CHF) Review of Systems - Review of Systems Cardiovascular: denies: Chest Pain, Palpitations Respiratory: denies: SOB, SOB on Exertion Gastrointestinal: reports: Abdominal Pain, Nausea, Vomiting Genitourinary: reports: No Symptoms Neurological: reports: No Symptoms Physical Examination Vital Signs: Vital Signs Temperature 98.9 F 12/01/16 05:36 Pulse Rate 76 12/01/16 05:36 Respiratory Rate 18 12/01/16 05:36 Blood Pressure 136/68 12/01/16 05:36 O2 Sat by Pulse Oximetry (%) 99 12/01/16 01:28 Cardiovascular: Yes: S1, S2 Respiratory: Yes: Regular, CTA Bilaterally Gastrointestinal: Yes: Normal Bowel Sounds, Soft, Tenderness (EPIGASTRIC AND RUQ ) Labs: CBC, BMP 12/01/16 06:00 Problem List - Problems (1) Pancreatitis Assessment/Plan: R/O GALLSTONE PANCREATITIS CT SCAN IV ABX NPO GI AND SURGICAL CONSULT Code(s): K85.90 - ACUTE PANCREATITIS WITHOUT NECROSIS OR INFECTION, UNSP (2) Abdominal pain Assessment/Plan: ABOVE FOLLOW LABS Code(s): R10.9 - UNSPECIFIED ABDOMINAL PAIN Qualifiers: Abdominal location: epigastric Qualified Code(s): R10.13 - Epigastric pain (3) Atrial fibrillation Assessment/Plan: HOLD COUMADIN MONITOR INR Code(s): I48.91 - UNSPECIFIED ATRIAL FIBRILLATION (4) HTN (hypertension) Assessment/Plan: STABLE ON CURRENT MEDS Code(s): I10 - ESSENTIAL (PRIMARY) HYPERTENSION Qualifiers: Hypertension type: essential hypertension Qualified Code(s): I10 - Essential (primary) hypertension (5) Hypokalemia Assessment/Plan: REPLACE Code(s): E87.6 - HYPOKALEMIA
[2016-12-01] MEDS ORDERED: PNEUMOC 13-VAL CONJ-DIP CRM/PF 0.5 ML DISP.SYRIN IM ONE (13:00)
--- NOTE | 2016-12-01 14:15 | PN ---
Progress Note (short form) - Note Progress Note: GI CONSULT FOR DR WATERS: PLEASE SEE THE FULL DICTATION IN BRIEF: 66F HF/ MORBID OBESITY/LUIS DANIEL/DM/AFIB ON A/C RECENT BILIARY COLIC, WAS TO HAVE ELECTIVE L.C IN [place] NOW ADMIT WITH ACUTE BILIARY PANCREATITIS NO EVIDENCE OF END ORGAN DAMAGE FEELS MUCH IMPROVED TOPDAY PAIN FREE' AFEBRILE WBC 12 ELEVATED LFT'S--SUGGESTIVE OF PASSED STONE RECC: RX OF PANCREATITIS ---IVF AGGRESSIVE IVF ---PAIN MEDS NEEDED ---NPO ---IV ABX ---F/U LABS, CBC/LFT'S/LIPASE/C-RP IF LFT'S DON'T IMPROVE OR IF BILIRUBIN RISES, THEN WOULD OBTAIN MRCP TO R/O CBD STONES THAT WOULD WARRANT PRE-OP ERCP ---NO EVIDEENCE OF OF ASCENDING CHOLANGITIS AT THIS TIME ----WILL NEED CHOLECYSTECTOMY ONCE PANCREATITIS RESOLVED THANK YOU, MD KEDAR
[2016-12-01] MEDS ORDERED: KCL 10 MEQ IVPB 100 ML IVPB ONE (14:45)
[2016-12-01 14:56] LABS: ALBUMIN 3.2 g/dl (3.4-5.0); BILIRUBIN,TOTAL 3.4 mg/dL (0.2-1.0); CALCIUM 8.5 mg/dL (8.5-10.1); CREATININE 1.2 mg/dL (0.55-1.02); TOT PROT 6.6 g/dl (6.4-8.2)
[2016-12-01] MEDS: PIPERACILLIN/TAZOB 3.375 GM/50 ML PRE-DOCKED IVPB SCH (21:20)
[2016-12-01] MEDS: ATORVASTATIN CA 40 MG TABLET (FP) PO SCH (21:21)
--- NOTE | 2016-12-02 00:06 | CONS ---
DATE OF CONSULTATION: 12/01/2016 REFERRING PHYSICIAN: Bobbi Fried MD REASON FOR REFERRAL: Pancreatitis. BRIEF HISTORY: This is a 66-year-old female who presented to the emergency room with nausea and vomiting since yesterday afternoon. She states the pain had progressively worsened; therefore, she presented to the ER. In the ER, she underwent evaluation with routine blood work. She did not have a leukocytosis. Her glucose is elevated and her transaminases were elevated. She is known to have gallstones. Also, on the blood work from the emergency room, her amylase and lipase were also elevated. PAST MEDICAL HISTORY: Significant for atrial fibrillation, hypertension, noninsulin-dependent diabetes, coronary artery disease, and morbid obesity. PAST SURGICAL HISTORY: She has had a midline laparostomy for a hysterectomy and bilateral knee replacements. ALLERGIES: None. MEDICATIONS: Hydrochlorothiazide, metformin, atenolol, Lipitor, Coumadin, Cardizem, Pepcid, Zofran, and Protonix. PHYSICAL EXAMINATION: HEENT: There is no icterus. ABDOMEN: The abdomen is morbidly obese. She has a midline scar that goes approximately 3 inches above the umbilicus down to the pubis. The abdomen is soft, nontender, and mildly distended. It is difficult to determine tenderness due to patient's morbid obesity. IMPRESSION/PLAN: Biliary pancreatitis. This is a 66-year-old female with a multitude of medical comorbidities who presents with acute onset of abdominal pain. Findings consistent with pancreatitis. Patient has had an ultrasound based on the chart that demonstrated gallstones. Therefore, the most likely cause of her pancreatitis in this scenario is biliary. She is also noted to have hypokalemia on examination and this is being corrected via intravenous fluids. At this point, I would recommend management of the pancreatitis medically with bowel rest and IV hydration. She should undergo repeat blood work. As the transaminases normalized as well as the amylase, patient can then be scheduled for attempt at a laparoscopic cholecystectomy. Patient should also be evaluated by cardiology due to her atrial fibrillation and management of her Coumadin. At this point, we would plan to operate on this patient and therefore her Coumadin should be held if okay with Cardiology. I will continue to evaluate this patient on a daily basis. Thank you for allowing me to participate in the care of your patient. Should you have any questions, please feel free to give me a call directly. PATRIZIA SCHULTZ M.D. [facility]O/[id number] cc: MD Ladarius Cleary MD
[2016-12-02] MEDS: D5-1/2NS+20 MEQ KCL - 1,000 ML IV SCH ×2 (01:00→14:31)
[2016-12-02] MEDS: PIPERACILLIN/TAZOB 3.375 GM/50 ML PRE-DOCKED IVPB SCH ×2 (03:15→09:53)
[2016-12-02 07:28] LABS: BASOPHIL 0.2 % (0-2.0); MCH 32.5 pg (25.7-33.7); MCHC 33.8 g/dl (32.0-36.0); MEAN CELL VOLUME 96.2 fl (80-96); MEAN PLT VOLUME 9.2 fl (7.5-11.1); NEUTROPHILS 89.6 % (42.8-82.8); PLATELET COUNT 201 K/MM3 (134-434); RDW 13.9 % (11.6-15.6); WHITE BLOOD COUNT 14.1 K/mm3 (4.0-10.0)
[2016-12-02 07:54] LABS: AMYLASE 590 U/L (25-115); ANION GAP 11 (8-16); CALCIUM 8.5 mg/dL (8.5-10.1); CO2 27 mmol/L (21-32); CREATININE 0.9 mg/dL (0.55-1.02); GLUCOSE,RANDOM 114 mg/dL (74-106); SGOT/AST 183 U/L (15-37); SGPT/ALT 266 U/L (12-78)
[2016-12-02 07:58] LABS: ALK PHOS 184 U/L (45-117); BILIRUBIN,TOTAL 4.5 mg/dL (0.2-1.0); TOT PROT 6.4 g/dl (6.4-8.2)
[2016-12-02 08:08] LABS: INR 3.14 (0.82-1.09); PROTHROMBIN TIME (PATIENT) 35.3 SEC (9.98-11.88)
[2016-12-02] MEDS: PANTOPRAZOLE 40 MG TABLET (FP) PO SCH (09:54)
[2016-12-02] MEDS: ATENOLOL 50 MG TABLET (FP) PO SCH (09:54)
[2016-12-02] MEDS ORDERED: POTASSIUM CHLORIDE 20 MEQ PREMIX IVPB 100 ML IVPB ONE (10:46)
--- NOTE | 2016-12-02 10:53 | PN ---
Progress Note, Physician Chief Complaint: patient feeling better today no nausea no votming no abdominal pain but lab work bilirubin rising - Current Medication List Current Medications: Active Medications Atenolol (Tenormin -) 25 mg PO DAILY [facility] Last Admin: 12/02/16 09:54 Dose: 25 mg Atorvastatin Calcium (Lipitor -) 40 mg PO HS [facility] Last Admin: 12/01/16 21:21 Dose: 40 mg Diltiazem HCl (Cardizem Cd -) 120 mg PO BID [facility] Last Admin: 12/02/16 09:54 Dose: 120 mg Potassium Chloride/Dextrose/Sod Cl (D5-1/2ns+20 Meq Kcl -) 1,000 mls @ 75 mls/ hr IV ASDIR [facility] Last Admin: 12/02/16 01:00 Dose: 75 mls/hr Ondansetron HCl (Zofran Injection) 4 mg IVPB Q6H PRN PRN Reason: NAUSEA Pantoprazole Sodium (Protonix -) 40 mg PO DAILY [facility] Last Admin: 12/02/16 09:54 Dose: 40 mg Piperacillin Sod/Tazobactam Sod (Zosyn 3.375gm Ivpb (Pre-Docked)) 3.375 gm IVPB Q8H-IV ALANNAH PRN Reason: Protocol Last Admin: 12/02/16 09:53 Dose: 3.375 gm Potassium Chloride (K-Dur -) 20 meq PO ONCE ONE Stop: 12/02/16 10:49 - Objective Vital Signs: Vital Signs Temperature 99.6 F 12/02/16 10:00 Pulse Rate 67 12/02/16 10:00 Respiratory Rate 18 12/02/16 10:00 Blood Pressure 140/60 12/02/16 10:00 O2 Sat by Pulse Oximetry (%) 97 12/02/16 09:00 Constitutional: Yes: Calm, Obese Cardiovascular: Yes: Regular Rate and Rhythm, S1, S2 Respiratory: Yes: CTA Bilaterally Gastrointestinal: Yes: Soft, Abdomen, Obese Neurological: Yes: Alert, Oriented Labs: CBC, BMP 12/02/16 06:20 12/02/16 06:20 INR, PTT INR 3.14 (0.82-1.09) H 12/02/16 06:20 Problem List - Problems (1) Pancreatitis Assessment/Plan: iv abx improving lft and lipase but bili is rising mri abdomen ordered Code(s): K85.90 - ACUTE PANCREATITIS WITHOUT NECROSIS OR INFECTION, UNSP Qualifiers: Pancreatitis type: biliary (2) Atrial fibrillation Assessment/Plan: elevated INR depsite being off coumadin could be sec to sepsis, tenormin Code(s): I48.91 - UNSPECIFIED ATRIAL FIBRILLATION (3) Hypokalemia Assessment/Plan: repleted cehck mag level in am as well as K Code(s): E87.6 - HYPOKALEMIA (4) Biliary colic Assessment/Plan: improving no pain Code(s): K80.50 - CALCULUS OF BILE DUCT W/O CHOLANGITIS OR CHOLECYST W/O OBST (5) Diabetes Assessment/Plan: hold metformin check hga1c Code(s): E11.9 - TYPE 2 DIABETES MELLITUS WITHOUT COMPLICATIONS Qualifiers: Diabetes mellitus type: type 2 (6) HTN (hypertension) Assessment/Plan: tenormin holding hctz as npo Code(s): I10 - ESSENTIAL (PRIMARY) HYPERTENSION Qualifiers: Hypertension type: essential hypertension Qualified Code(s): I10 - Essential (primary) hypertension
--- NOTE | 2016-12-02 11:09 | CONS ---
GASTROENTEROLOGY CONSULTATION (This consult is for Sander Garcia MD We are in coverage of Dr. Garcia.) DATE OF CONSULTATION: 12/01/2016 DICTATED BY: Bry Victoria MD HISTORY OF PRESENT ILLNESS: We were called to see the patient for abdominal pain and biliary pancreatitis. The patient is a fair informant. The history comes from herself and the medical record. Apparently, she is a 66-year-old morbidly obese -Spanish woman with a past medical history of atrial fibrillation, on chronic Coumadin, hypertension, diabetes who has been followed by Dr. Garcia for years, she reports. She has had a history, she says, of gastritis, colonic polyps, constipation and hemorrhoids. According to the emergency room, it appears she had procedures with Dr. Garcia, it looks like in 2016. It looks like she had band ligation of hemorrhoids, colonoscopy and polypectomy, was found to have hyperplastic polyps. She also is noted to have a redundant colon, melanosis coli and diverticulosis. I am not certain the last time she has had an upper endoscopy; however, she tells me that for the past month her gallbladder has not been working. She had been seeing Dr. Garcia, been having episodes of what sound like biliary colic. She had a gallbladder sonogram is looks like the end of October of this year, and when she was noted to have numerous gallstones without any ductal dilatation or evidence of choledocholithiasis. There was question of acute early cholecystitis on the films; however, she had a HIDA scan that was then negative. She tells me she was referred to a surgeon in [place], and she was scheduled to have an elective cholecystectomy in the upcoming weeks. However, she has had acute onset of severe epigastric pain with nausea/vomiting. She did not have any fevers, chills or sweats. She had not eaten much. She had a little soup during the day, and then she had the onset of symptoms. She came to the hospital, was noted to have a lipase extremely high and was admitted for pancreatitis. The patient today tells me that she feels much, much better. She is having minimal pain. She is hungry. She is moving her bowels, although yet she says she is chronically constipated. Not having any rectal bleeding. Not having any dysphagia noted. The patient is still not having any fevers, chills or sweats. However, she was started on antibiotics in the emergency room. PAST MEDICAL HISTORY: As noted, she has obstructive sleep apnea, constipation, reflux, hemorrhoids, diverticulosis, polyps, atrial fibrillation, pulmonary hypertension as well as diabetes. PRIOR SURGICAL HISTORY: The patient's prior surgery includes hysterectomy and 2 total knee replacements. SOCIAL HISTORY: The patient does not smoke. She drinks socially. She is , and she is working. She was born in [place]. ALLERGIES: She has no known drug allergies. MEDICATIONS: As an outpatient, she was taking hydrochlorothiazide as well as Glucophage, Tenormin, Lipitor, warfarin, Cardizem, Pepcid, Motrin, Zofran and Protonix. Here in the hospital, in terms of medications, she has been getting Zofran, Zosyn, Tenormin, Cardizem, Lipitor, Protonix, IV fluids. She had been getting some pain medication with morphine, although it looks like she had not required any today at all. PHYSICAL EXAM: General: She is a morbidly obese woman. Vital signs: Stable. She is afebrile. She is not tachycardic. Her blood pressure is 140/68. HEENT: Her neck is supple. Her sclera are anicteric. Abdomen: Obese. It is soft, symmetric. There are no scars. Bowel sounds are active. There are no masses, rebound or guarding. There is minimal tenderness to deep palpation in the epigastric region. LAB DATA: Notable in that her serum sodium is 141, potassium 3.3, chloride 101, bicarbonate 25. BUN 14, creatinine 0.9. Calcium 8.4. Total bilirubin of 2.2 with an AST of 637, ALT of 439. Alkaline phosphatase 190. Total protein 6.6, albumin 3.1. Amylase 800, and as noted, her lipase is 10,000. The patient has not had any imaging. In fact, she is going for a CAT scan. IMPRESSION: At this point, it is my impression that the patient is a 66-year-old woman with known multiple medical problems stemming from morbid obesity and diabetes with hypertension, pulmonary hypertension, obstructive sleep apnea who has had GI issues, followed by Dr. Garcia. For the past month, it appears she has been having pain after meals, no fevers or chills. She has had episodes of biliary colic. She is being worked up as an outpatient for cholelithiasis and was to undergo an elective cholecystectomy. However, she now comes in with a complication of cholelithiasis and biliary pancreatitis. At the present time, she does not appear to have cholangitis. PLAN: 1. However, we will follow her closely as her bilirubin has bumped slightly. 2. I agree with empiric antibiotics, n.p.o. 3. Aggressive IV fluid. 4. Pain medication. 5. Once the episode subsides, then she should be evaluated for a cholecystectomy prior to discharge. 6. We will continue to be available to aid and manage this patient. Once the pancreatitis resolves, if her LFTs are not back to normal, I would recommend an MRCP, and if there are findings to suggest choledocholithiasis, she may warrant an ERCP. It appears she has passed a stone, and there is sludge through the bile duct, and we will need to continue to observe this. Thank you kindly. BRY VICTORIA M.D. [place]/[id number] cc: Sander Garcia MD
[2016-12-02] MEDS ORDERED: POTASSIUM CHLORIDE TABS 20 MEQ TABLET.ER (FP) PO ONE (11:15)
--- NOTE | 2016-12-02 14:30 | PN ---
Progress Note (short form) - Note Progress Note: ID Consult dictated Biliary pancreatitis Chronic cholecystitis Diabetes mellitus Obtain blood c/s Empiric zosyn GI/ Surgery follow up
--- NOTE | 2016-12-02 14:31 | PN ---
Progress Note (short form) - Note Progress Note: surgery pt seen and examined. feels well, mild discomfort, hungry. asking questions but moves on to next question before answer given. afebrile abd- soft, mild epigastric tenderness, nd, super obese Laboratory Tests 12/02/16 12/02/16 12/02/16 06:20 06:20 06:20 WBC 14.1 H INR 3.14 H Total Bilirubin 4.5 H D AST 183 H D ALT 266 H D Alkaline Phosphatase 184 H Total Amylase 590 H D Lipase 5570 H A/P 1) presumed biliary pancreatitis with suspicion of choledocholithiasis as well. lts not significantly improved. may require ercp. eventual cholecystectomy when pancreatitis resolves, cbd be shown to be clear, anticoagulation worn off, and medically optimized. As pt is super obese (bmi 53) with previous laparotomy, laparoscopic cholecytectomy will be difficult with increased risk of conversion to open and biliary/medical complications
--- NOTE | 2016-12-02 17:47 | PN ---
Progress Note, Physician History of Present Illness: No new complaints No CP, SOB - Current Medication List Current Medications: Active Medications Atenolol (Tenormin -) 25 mg PO DAILY [facility] Last Admin: 12/02/16 09:54 Dose: 25 mg Atorvastatin Calcium (Lipitor -) 40 mg PO HS [facility] Last Admin: 12/01/16 21:21 Dose: 40 mg Diltiazem HCl (Cardizem Cd -) 120 mg PO BID [facility] Last Admin: 12/02/16 09:54 Dose: 120 mg Potassium Chloride/Dextrose/Sod Cl (D5-1/2ns+20 Meq Kcl -) 1,000 mls @ 75 mls/ hr IV ASDIR [facility] Last Admin: 12/02/16 14:31 Dose: 75 mls/hr Piperacillin Sod/Tazobactam Sod (Zosyn 4.5gm Ivpb (Pre-Docked)) 100 mls @ 200 mls/hr IVPB Q8H-IV ALANNAH PRN Reason: Protocol Ondansetron HCl (Zofran Injection) 4 mg IVPB Q6H PRN PRN Reason: NAUSEA Pantoprazole Sodium (Protonix -) 40 mg PO DAILY [facility] Last Admin: 12/02/16 09:54 Dose: 40 mg - Objective Vital Signs: Vital Signs Temperature 99.7 F H 12/02/16 14:31 Pulse Rate 75 12/02/16 14:31 Respiratory Rate 18 12/02/16 14:31 Blood Pressure 140/60 12/02/16 10:00 O2 Sat by Pulse Oximetry (%) 97 12/02/16 09:00 Constitutional: Yes: No Distress, Obese Eyes: Yes: Conjunctiva Clear HENT: Yes: Atraumatic Neck: Yes: Supple Cardiovascular: Yes: Regular Rate and Rhythm. No: Murmur Respiratory: Yes: CTA Bilaterally Gastrointestinal: Yes: Normal Bowel Sounds, Soft, Tenderness (mild) Edema: No Peripheral Pulses WNL: Yes Neurological: Yes: Alert, Oriented Psychiatric: Yes: Alert, Oriented Labs: CBC, BMP 12/02/16 06:20 12/02/16 06:20 INR, PTT INR 3.14 (0.82-1.09) H 12/02/16 06:20 Assessment/Plan 66 yo female with morbid obesity, HTN, paroxysmal atrial fibrillation (on coumadin), HTN, DM type 2. Admitted with pancreatitis. Currently pending cholecystectomy by Dr. Romano from general surgery. Patient was last seen by Dr. Ephraim Aguero ([facility] cardiology) on 09/25/[address] [place] [address]. No new complaints INR 3.1 today RECS: Patient does not have any cardiac contraindications to her pending cholecystectomy and may proceed without further cardiac work-up. Coumadin currently being held in preparation for pending surgery. Continue atenolol and diltiazem. Continue holding HCTZ as patient is currently NPO except for meds. May resume coumadin post-operatively when OK per surgery. Replace lytes as needed. Further recs as per primary care team and general surgery
[2016-12-02 18:01] LABS: URINE APPEARANCE CLEAR; URINE BILIRUBIN NEGATIVE (NEGATIVE); URINE COLOR AMBER; URINE GLUCOSE (UA) NEGATIVE (NEGATIVE); URINE KETONE NEGATIVE (NEGATIVE); URINE LEUK ESTERASE NEGATIVE (NEGATIVE); URINE NITRITE NEGATIVE (NEGATIVE); URINE UROBILINOGEN 4.0 E.U/dl E.U./dl (0.2-1.0)
[2016-12-02 18:08] LABS: URINE BLOOD 1+ (NEGATIVE); URINE PROTEIN 1+ (NEGATIVE)
[2016-12-02 18:13] LABS: URINE RBC 1 /hpf (0-3); URINE WBC 4 /hpf (3-5)
[2016-12-02] MEDS: PIPERACILLIN/TAZOB 4.5 GM 100 ML IVPB SCH (18:29)
--- NOTE | 2016-12-02 20:58 | CONS ---
DATE OF CONSULTATION: DATE OF DICTATION: 12/02/2016 A 66-year-old female evaluated for biliary sepsis. She was admitted to the hospital on November 30, 2016, with a 1-day history of epigastric abdominal pain, nausea and vomiting. She had a known history of cholelithiasis and chronic cholecystitis. She was scheduled for a surgical appointment tomorrow to schedule an elective cholecystectomy. She was found to have elevated amylase and lipase consistent with pancreatitis as well as elevated liver enzymes. CAT scan of the abdomen and pelvis showed peripancreatic soft tissue stranding consistent with pancreatitis, cholelithiasis, mild diffuse gallbladder wall thickening, with no biliary tract dilatation. She was empirically treated with Zosyn. At the present time she is pain free. She denies any recurrent abdominal pain. No nausea or vomiting. She states she has been having normal bowel movements despite being n.p.o. She denies any fever or chills. Patient is noted to have a low-grade fever and elevated white blood cell count. Past medical history positive for hypertension, atrial fibrillation, diabetes mellitus, cholelithiasis. No known allergies. MEDICATIONS: Hydrochlorothiazide, Glucophage, atenolol, Lipitor, Coumadin, Pepcid, Protonix. SOCIAL HISTORY: She lives at home. Nonsmoker, nondrinker. SYSTEMS REVIEW: Neurologic: No loss of consciousness, seizure activity, focal weakness. Cardiac: Positive for atrial fibrillation, on Coumadin. Respiratory: Negative cough or sputum production. Gastrointestinal: As per HPI. Genitourinary: Negative for urinary tract infection. LABORATORY DATA: White count 14.1, hematocrit 32.8, platelet count 201. Amylase 590, total bilirubin 4.5, alkaline phosphatase 184, AST 183, ALT 261. PHYSICAL EXAMINATION: General: The patient is awake and alert, not acutely toxic appearing, obese, lying in bed in no acute distress. Vital Signs: Temperature 99.6. Blood pressure 140/60. Pulse 67, regular. Respirations 18 per minute. Eyes: Sclerae anicteric. Heart Sounds: Irregular irregular. S1, S2. Lungs: Clear. Abdomen: Positive bowel sounds. Abdomen is soft. No tenderness elicited. No mass, rebound or rigidity. No right upper quadrant tenderness to palpation. Extremities: Positive for edema. IMPRESSION: 1. Biliary pancreatitis. 2. Chronic cholecystitis. 3. Diabetes mellitus. 4. Low-grade fever/leukocytosis. Obtain blood cultures to rule out biliary sepsis. Empiric antibiotic coverage, biliary tract pathogens, with Zosyn. MRCP as per GI and Surgery. Cholecystectomy when medically stable. Thank you for the kind referral. ELO MIRANDA M.D. [facility]EVES/[id number]
[2016-12-02] MEDS: ATORVASTATIN CA 40 MG TABLET (FP) PO SCH (22:07)
[2016-12-03] MEDS: D5-1/2NS+20 MEQ KCL - 1,000 ML IV SCH ×2 (01:48→23:37)
[2016-12-03] MEDS: PIPERACILLIN/TAZOB 4.5 GM 100 ML IVPB SCH ×3 (01:49→18:03)
[2016-12-03 07:39] LABS: BASOPHIL 0.7 % (0-2.0); EOSINOPHIL 2.6 % (0-4.5); MCH 32.8 pg (25.7-33.7); MCHC 33.9 g/dl (32.0-36.0); MEAN CELL VOLUME 96.8 fl (80-96); MEAN PLT VOLUME 9.3 fl (7.5-11.1); NEUTROPHILS 80.3 % (42.8-82.8); PLATELET COUNT 199 K/MM3 (134-434); RDW 14.1 % (11.6-15.6); WHITE BLOOD COUNT 9.9 K/mm3 (4.0-10.0)
[2016-12-03 08:00] LABS: INR 1.91 (0.82-1.09); PROTHROMBIN TIME (PATIENT) 21.3 SEC (9.98-11.88)
[2016-12-03 08:20] LABS: ALBUMIN 2.8 g/dl (3.4-5.0); ALK PHOS 187 U/L (45-117); ANION GAP 11 (8-16); BILIRUBIN,TOTAL 2.3 mg/dL (0.2-1.0); CALCIUM 8.5 mg/dL (8.5-10.1); CO2 25 mmol/L (21-32); CREATININE 0.7 mg/dL (0.55-1.02); GLUCOSE,RANDOM 119 mg/dL (74-106); SGPT/ALT 171 U/L (12-78); TOT PROT 6.3 g/dl (6.4-8.2)
[2016-12-03 08:41] LABS: SGOT/AST 83 U/L (15-37)
[2016-12-03] MEDS ORDERED: HEPARIN NA (PORCINE) 5,000 UNITS/ML 1ML VIAL IVPUSH PRN ×2 (09:08)
--- NOTE | 2016-12-03 09:09 | PN ---
Progress Note, Physician History of Present Illness: LESS PAIN - Current Medication List Current Medications: Active Medications Atenolol (Tenormin -) 25 mg PO DAILY [facility] Last Admin: 12/02/16 09:54 Dose: 25 mg Atorvastatin Calcium (Lipitor -) 40 mg PO HS [facility] Last Admin: 12/02/16 22:07 Dose: 40 mg Diltiazem HCl (Cardizem Cd -) 120 mg PO BID [facility] Last Admin: 12/02/16 22:07 Dose: 120 mg Potassium Chloride/Dextrose/Sod Cl (D5-1/2ns+20 Meq Kcl -) 1,000 mls @ 75 mls/ hr IV ASDIR [facility] Last Admin: 12/03/16 01:48 Dose: 75 mls/hr Piperacillin Sod/Tazobactam Sod (Zosyn 4.5gm Ivpb (Pre-Docked)) 100 mls @ 200 mls/hr IVPB Q8H-IV ALANNAH PRN Reason: Protocol Last Admin: 12/03/16 01:49 Dose: 200 mls/hr Ondansetron HCl (Zofran Injection) 4 mg IVPB Q6H PRN PRN Reason: NAUSEA Pantoprazole Sodium (Protonix -) 40 mg PO DAILY [facility] Last Admin: 12/02/16 09:54 Dose: 40 mg - Objective Vital Signs: Vital Signs Temperature 99.2 F 12/03/16 06:00 Pulse Rate 70 12/03/16 06:00 Respiratory Rate 20 12/03/16 06:00 Blood Pressure 123/58 12/03/16 06:00 O2 Sat by Pulse Oximetry (%) 96 12/02/16 21:00 Cardiovascular: Yes: Regular Rate and Rhythm Respiratory: Yes: Regular, CTA Bilaterally Gastrointestinal: Yes: Normal Bowel Sounds, Soft. No: Tenderness Labs: CBC, BMP 12/03/16 06:35 12/03/16 06:35 INR, PTT INR 1.91 (0.82-1.09) H D 12/03/16 06:35 Problem List - Problems (1) Pancreatitis Assessment/Plan: R/O GALLSTONE PANCREATITIS CT SCAN IV ABX NPO GI AND SURGICAL CONSULT NOTED UNABLE TO DO MRCP Code(s): K85.90 - ACUTE PANCREATITIS WITHOUT NECROSIS OR INFECTION, UNSP Qualifiers: Pancreatitis type: biliary (2) Abdominal pain Assessment/Plan: ABOVE FOLLOW LABS Code(s): R10.9 - UNSPECIFIED ABDOMINAL PAIN Qualifiers: Abdominal location: epigastric Qualified Code(s): R10.13 - Epigastric pain (3) Atrial fibrillation Code(s): I48.91 - UNSPECIFIED ATRIAL FIBRILLATION (4) HTN (hypertension) Assessment/Plan: STABLE ON CURRENT MEDS START HEPARIN EKG Code(s): I10 - ESSENTIAL (PRIMARY) HYPERTENSION Qualifiers: Hypertension type: essential hypertension Qualified Code(s): I10 - Essential (primary) hypertension (5) Hypokalemia Assessment/Plan: REPLACE Code(s): E87.6 - HYPOKALEMIA (6) Gall bladder disease Assessment/Plan: SURGERY THIS ADMISSION Code(s): K82.9 - DISEASE OF GALLBLADDER, UNSPECIFIED
[2016-12-03 09:15] LABS: AMYLASE 148 U/L (25-115)
[2016-12-03] MEDS ORDERED: HEPARIN INFUSION - 500 ML IVPB SCH (09:15)
[2016-12-03] MEDS ORDERED: PT OWN MED DRAWER 7, Y5N ONE (11:46)
[2016-12-03] MEDS: ATENOLOL 50 MG TABLET (FP) PO SCH (11:55)
[2016-12-03] MEDS: PANTOPRAZOLE 40 MG TABLET (FP) PO SCH (11:55)
--- NOTE | 2016-12-03 13:25 | PN ---
Progress Note, Physician History of Present Illness: No chest pain or dyspnea. - Current Medication List Current Medications: Active Medications Atenolol (Tenormin -) 25 mg PO DAILY [facility] Last Admin: 12/03/16 11:55 Dose: 25 mg Atorvastatin Calcium (Lipitor -) 40 mg PO HS [facility] Last Admin: 12/02/16 22:07 Dose: 40 mg Diltiazem HCl (Cardizem Cd -) 120 mg PO BID [facility] Last Admin: 12/03/16 11:56 Dose: 120 mg Potassium Chloride/Dextrose/Sod Cl (D5-1/2ns+20 Meq Kcl -) 1,000 mls @ 75 mls/ hr IV ASDIR [facility] Last Admin: 12/03/16 01:48 Dose: 75 mls/hr Piperacillin Sod/Tazobactam Sod (Zosyn 4.5gm Ivpb (Pre-Docked)) 100 mls @ 200 mls/hr IVPB Q8H-IV [facility]ANNA[facility] PRN Reason: Protocol Last Admin: 12/03/16 11:54 Dose: 200 mls/hr Ondansetron HCl (Zofran Injection) 4 mg IVPB Q6H PRN PRN Reason: NAUSEA Pantoprazole Sodium (Protonix -) 40 mg PO DAILY [facility] Last Admin: 12/03/16 11:55 Dose: 40 mg - Objective Vital Signs: Vital Signs Temperature 98.6 F 12/03/16 09:00 Pulse Rate 59 L 12/03/16 09:00 Respiratory Rate 20 12/03/16 09:00 Blood Pressure 140/82 12/03/16 09:00 O2 Sat by Pulse Oximetry (%) 96 12/03/16 09:00 Constitutional: Yes: Well Nourished, No Distress, Obese Eyes: Yes: Conjunctiva Clear, EOM Intact HENT: Yes: Atraumatic, Normocephalic Cardiovascular: Yes: Regular Rate and Rhythm. No: JVD Respiratory: Yes: CTA Bilaterally Gastrointestinal: Yes: Soft Edema: No Neurological: Yes: WNL Psychiatric: Yes: WNL Labs: CBC, BMP 12/03/16 06:35 12/03/16 06:35 INR, PTT INR 1.91 (0.82-1.09) H D 12/03/16 06:35 Assessment/Plan 66 yo female with morbid obesity, HTN, paroxysmal atrial fibrillation (on coumadin), HTN, DM type 2. Admitted with pancreatitis. Currently pending cholecystectomy by Dr. Romano from general surgery. Patient was last seen by Dr. Ephraim Aguero ([facility] cardiology) on 09/25/[address] [place] [address]. RECS: Patient does not have any cardiac contraindications to her pending cholecystectomy (and other GI procedures if clinically indicated) and may proceed without further cardiac work-up. Coumadin currently being held in preparation for pending surgery. INR 1.91 today. Patient does not require bridging with heparin gtt as patient remains in sinus rhythm today per cardiac exam. Will D/C heparin gtt which was started earlier today. Continue atenolol and diltiazem. BP controlled. May resume coumadin post-operatively when OK per surgery. Further recs as per primary care team, general surgery, and GI. Will follow. Please call with questions.
--- NOTE | 2016-12-03 15:27 | PN ---
Progress Note, Physician History of Present Illness: No c/o abdominal pain No N/V No BM (pt NPO) No c/o fever/ chills Low grade temp noted WBC improved LFTs improved - Current Medication List Current Medications: Active Medications Atenolol (Tenormin -) 25 mg PO DAILY [facility] Last Admin: 12/03/16 11:55 Dose: 25 mg Atorvastatin Calcium (Lipitor -) 40 mg PO HS [facility] Last Admin: 12/02/16 22:07 Dose: 40 mg Diltiazem HCl (Cardizem Cd -) 120 mg PO BID [facility] Last Admin: 12/03/16 11:56 Dose: 120 mg Potassium Chloride/Dextrose/Sod Cl (D5-1/2ns+20 Meq Kcl -) 1,000 mls @ 75 mls/ hr IV ASDIR [facility] Last Admin: 12/03/16 01:48 Dose: 75 mls/hr Piperacillin Sod/Tazobactam Sod (Zosyn 4.5gm Ivpb (Pre-Docked)) 100 mls @ 200 mls/hr IVPB Q8H-IV [facility]ANNA[facility] PRN Reason: Protocol Last Admin: 12/03/16 11:54 Dose: 200 mls/hr Ondansetron HCl (Zofran Injection) 4 mg IVPB Q6H PRN PRN Reason: NAUSEA Pantoprazole Sodium (Protonix -) 40 mg PO DAILY [facility] Last Admin: 12/03/16 11:55 Dose: 40 mg - Objective Vital Signs: Vital Signs Temperature 98.5 F 12/03/16 15:00 Pulse Rate 75 12/03/16 15:00 Respiratory Rate 20 12/03/16 09:00 Blood Pressure 135/76 12/03/16 15:00 O2 Sat by Pulse Oximetry (%) 96 12/03/16 09:00 Constitutional: Yes: No Distress Eyes: Yes: Conjunctiva Clear Cardiovascular: Yes: Regular Rate and Rhythm, S1, S2 Respiratory: Yes: CTA Bilaterally Gastrointestinal: Yes: Normal Bowel Sounds, Soft, Abdomen, Obese. No: Tenderness Edema: No Labs: CBC, BMP 12/03/16 06:35 12/03/16 06:35 INR, PTT INR 1.91 (0.82-1.09) H D 12/03/16 06:35 Assessment/Plan Biliary pancreatitis Chronic cholecystitis Diabetes mellitus Continue empiric zosyn GI/ Surgical followup
--- NOTE | 2016-12-03 15:39 | PN ---
Progress Note (short form) - Note Progress Note: surgery pt seen and examined. feels well. lft significantly dropped. unable to MRI because of pt size and phobia. HIDA report still pending but clinically not cholecystitis and gb appears to fill as well as small bowel. On exam abd is soft, nt. Plan- biliary pancreatitis, choledocholithiasis- suspect passed stone. without ercp or MRCP it will not be possible to confirm passage of the stone until lfts improve futher. will start clears, npo after mn. Once labs better can proceed with prophylactic cholecystectomy. anticoagulation continues to wear off. Laboratory Tests 12/03/16 12/03/16 12/03/16 06:35 06:35 06:35 WBC 9.9 INR 1.91 H D Total Bilirubin 2.3 H D AST 83 H D ALT 171 H D Alkaline Phosphatase 187 H Total Amylase 148 H D Lipase 2291 H
--- NOTE | 2016-12-03 16:08 | PN ---
GI Progress Note Subjective: GASTROENTEROLOGY NO PAIN NO NAUSEA, NO VOMITING PLACED ON CLEAR DIET LFT'S AND LIPASE TRENDING DOWN COULD NOT FIT IN MRI WAS SEEN IN OUR OFFICE SENT TO SURGEON FOR CHOLECYSECTOMY WAS TO SEE DR BRAND TODAY - Objective Vital Signs: Vital Signs Temperature 98.5 F 12/03/16 15:00 Pulse Rate 75 12/03/16 15:00 Respiratory Rate 20 12/03/16 09:00 Blood Pressure 135/76 12/03/16 15:00 O2 Sat by Pulse Oximetry (%) 96 12/03/16 09:00 Constitutional: Calm Eyes: Yes: Conjunctiva Clear HENT: Yes: Normocephalic Neck: Yes: Supple Cardiovascular: Yes: Regular Rate and Rhythm Respiratory: Yes: Regular Gastrointestinal Inspection: Yes: Other (OBESE) ...Auscultate: Yes: Normoactive Bowel Sounds ...Palpate: Yes: Soft Extremities: Yes: WNL Labs: CBC, BMP 12/03/16 06:35 12/03/16 06:35 INR, PTT INR 1.91 (0.82-1.09) H D 12/03/16 06:35 Laboratory Tests 12/01/16 12/01/16 12/02/16 06:00 14:00 06:20 Total Bilirubin 4.5 H D AST 183 H D ALT 266 H D Alkaline Phosphatase 184 H Lipase 85144 H 63730 H 5570 H 12/03/16 06:35 Total Bilirubin 2.3 H D AST 83 H D ALT 171 H D Alkaline Phosphatase 187 H Lipase 2291 H Problem List - Problems (1) Gallstone pancreatitis Assessment/Plan: PATIENT'S BODY HABITUS EXCLUDES A MRCP IF LFT'S IMPROVE CAN SEND TO SURGERY, IF DO NOT IMPROVE IN NEXT TWO DAYS SUGGEST ERCP OR EUS TO RULE OUT CBD STONE PRIOR TO SURGERY CLEAR LIQUIDS, FOLLOW LFT'S Code(s): K85.10 - BILIARY ACUTE PANCREATITIS WITHOUT NECROSIS OR INFECTION (2) History of acute cholecystitis Code(s): Z87.19 - PERSONAL HISTORY OF OTHER DISEASES OF THE DIGESTIVE SYSTEM
[2016-12-03] MEDS: ATORVASTATIN CA 40 MG TABLET (FP) PO SCH (21:36)
--- NOTE | 2016-12-03 21:36 | EKG ---
Test Reason : Blood Pressure : / mmHG Vent. Rate : 066 BPM Atrial Rate : 066 BPM P-R Int : 164 ms QRS Dur : 084 ms QT Int : 434 ms P-R-T Axes : 067 026 077 degrees QTc Int : 454 ms NORMAL SINUS RHYTHM NONSPECIFIC ST AND T WAVE ABNORMALITY ABNORMAL ECG WHEN COMPARED WITH ECG OF 21-AUG-2016 14:29, SINUS RHYTHM HAS REPLACED ATRIAL FLUTTER Confirmed by ILDEFONSO CLEMENTS, CHAKA ([id number]) on 12/03/2016 9:36:34 PM Referred By: Confirmed By:CHAKA FREGOSO MD
[2016-12-04] MEDS: PIPERACILLIN/TAZOB 4.5 GM 100 ML IVPB SCH ×3 (03:01→18:03)
[2016-12-04] MEDS: D5-1/2NS+20 MEQ KCL - 1,000 ML IV SCH ×2 (03:01→21:21)
[2016-12-04 08:10] LABS: BASOPHIL 0.8 % (0-2.0); EOSINOPHIL 4.1 % (0-4.5); MCH 32.6 pg (25.7-33.7); MCHC 33.7 g/dl (32.0-36.0); MEAN CELL VOLUME 96.8 fl (80-96); MEAN PLT VOLUME 9.2 fl (7.5-11.1); NEUTROPHILS 65.9 % (42.8-82.8); PLATELET COUNT 228 K/MM3 (134-434); RDW 14.1 % (11.6-15.6)
[2016-12-04 08:29] LABS: ALBUMIN 2.9 g/dl (3.4-5.0); ANION GAP 9 (8-16); CALCIUM 8.7 mg/dL (8.5-10.1); CO2 27 mmol/L (21-32); CREATININE 0.9 mg/dL (0.55-1.02); GLUCOSE,RANDOM 118 mg/dL (74-106); SGOT/AST 53 U/L (15-37); SGPT/ALT 137 U/L (12-78)
[2016-12-04 08:30] LABS: ALK PHOS 209 U/L (45-117); BILIRUBIN,TOTAL 1.4 mg/dL (0.2-1.0); TOT PROT 6.6 g/dl (6.4-8.2)
[2016-12-04 08:33] LABS: INR 1.78 (0.82-1.09); PROTHROMBIN TIME (PATIENT) 19.8 SEC (9.98-11.88)
[2016-12-04 08:46] LABS: AMYLASE 103 U/L (25-115)
--- NOTE | 2016-12-04 10:11 | PN ---
Progress Note (short form) - Note Progress Note: surgery pt seen and examined by Dr. martinez. feels well. no pain. afebrile abd- soft, nt Laboratory Tests 12/02/16 12/03/16 12/04/16 06:20 06:35 06:00 Total Bilirubin 4.5 H D 2.3 H D 1.4 H D GGT 712 H AST 183 H D 83 H D 53 H D ALT 266 H D 171 H D 137 H Alkaline Phosphatase 184 H 187 H 209 H Total Amylase 103 D Plan- clinically improved passed cbd stone. if lfts cont to improve can likely proceed with surgery tomorrow. if spike will likely need eus/ercp. npo after mn. clear liquids today.
[2016-12-04] MEDS: PANTOPRAZOLE 40 MG TABLET (FP) PO SCH (10:17)
[2016-12-04] MEDS: ATENOLOL 50 MG TABLET (FP) PO SCH (10:18)
--- NOTE | 2016-12-04 10:18 | PN ---
Progress Note, Physician History of Present Illness: NO PAIN - Current Medication List Current Medications: Active Medications Atenolol (Tenormin -) 25 mg PO DAILY [facility] Last Admin: 12/03/16 11:55 Dose: 25 mg Atorvastatin Calcium (Lipitor -) 40 mg PO HS [facility] Last Admin: 12/03/16 21:36 Dose: 40 mg Diltiazem HCl (Cardizem Cd -) 120 mg PO BID [facility] Last Admin: 12/03/16 21:36 Dose: 120 mg Potassium Chloride/Dextrose/Sod Cl (D5-1/2ns+20 Meq Kcl -) 1,000 mls @ 75 mls/ hr IV ASDIR [facility] Last Admin: 12/04/16 03:01 Dose: Not Given Piperacillin Sod/Tazobactam Sod (Zosyn 4.5gm Ivpb (Pre-Docked)) 100 mls @ 200 mls/hr IVPB Q8H-IV [facility] PRN Reason: Protocol Last Admin: 12/04/16 03:01 Dose: 200 mls/hr Ondansetron HCl (Zofran Injection) 4 mg IVPB Q6H PRN PRN Reason: NAUSEA Pantoprazole Sodium (Protonix -) 40 mg PO DAILY [facility] Last Admin: 12/03/16 11:55 Dose: 40 mg - Objective Vital Signs: Vital Signs Temperature 98.4 F 12/04/16 06:00 Pulse Rate 67 12/04/16 06:00 Respiratory Rate 20 12/04/16 06:00 Blood Pressure 139/63 12/04/16 06:00 O2 Sat by Pulse Oximetry (%) 96 12/03/16 21:00 Cardiovascular: Yes: Regular Rate and Rhythm Respiratory: Yes: Regular, CTA Bilaterally Gastrointestinal: Yes: Normal Bowel Sounds, Soft. No: Tenderness Labs: CBC, BMP 12/04/16 06:30 12/04/16 06:00 INR, PTT INR 1.78 (0.82-1.09) H 12/04/16 06:30 Problem List - Problems (1) Pancreatitis Assessment/Plan: R/O GALLSTONE PANCREATITIS CT SCAN NOTED IV ABX GI AND SURGICAL CONSULT NOTED UNABLE TO DO MRCP LFT IMPROVING--FOR OR Code(s): K85.90 - ACUTE PANCREATITIS WITHOUT NECROSIS OR INFECTION, UNSP Qualifiers: Pancreatitis type: biliary (2) Abdominal pain Assessment/Plan: ABOVE FOLLOW LABS Code(s): R10.9 - UNSPECIFIED ABDOMINAL PAIN Qualifiers: Abdominal location: epigastric Qualified Code(s): R10.13 - Epigastric pain (3) Atrial fibrillation Assessment/Plan: HOLD COUMADIN--RESUME POSTOP MONITOR INR Code(s): I48.91 - UNSPECIFIED ATRIAL FIBRILLATION (4) HTN (hypertension) Assessment/Plan: STABLE ON CURRENT MEDS START HEPARIN EKG Code(s): I10 - ESSENTIAL (PRIMARY) HYPERTENSION Qualifiers: Hypertension type: essential hypertension Qualified Code(s): I10 - Essential (primary) hypertension (5) Hypokalemia Assessment/Plan: REPLACED Code(s): E87.6 - HYPOKALEMIA (6) Gall bladder disease Assessment/Plan: SURGERY THIS ADMISSION Code(s): K82.9 - DISEASE OF GALLBLADDER, UNSPECIFIED
--- NOTE | 2016-12-04 12:39 | PN ---
Progress Note, Physician History of Present Illness: Awake, alert No c/o abdominal pain Temps down- afebrile WBC now normal BC (-) - Current Medication List Current Medications: Active Medications Atenolol (Tenormin -) 25 mg PO DAILY [facility] Last Admin: 12/04/16 10:18 Dose: 25 mg Atorvastatin Calcium (Lipitor -) 40 mg PO HS [facility] Last Admin: 12/03/16 21:36 Dose: 40 mg Diltiazem HCl (Cardizem Cd -) 120 mg PO BID [facility] Last Admin: 12/04/16 10:18 Dose: 120 mg Potassium Chloride/Dextrose/Sod Cl (D5-1/2ns+20 Meq Kcl -) 1,000 mls @ 75 mls/ hr IV ASDIR [facility] Last Admin: 12/04/16 03:01 Dose: Not Given Piperacillin Sod/Tazobactam Sod (Zosyn 4.5gm Ivpb (Pre-Docked)) 100 mls @ 200 mls/hr IVPB Q8H-IV [facility] PRN Reason: Protocol Last Admin: 12/04/16 10:19 Dose: 200 mls/hr Ondansetron HCl (Zofran Injection) 4 mg IVPB Q6H PRN PRN Reason: NAUSEA Pantoprazole Sodium (Protonix -) 40 mg PO DAILY [facility] Last Admin: 12/04/16 10:17 Dose: 40 mg - Objective Vital Signs: Vital Signs Temperature 98.4 F 12/04/16 06:00 Pulse Rate 67 12/04/16 06:00 Respiratory Rate 20 12/04/16 06:00 Blood Pressure 139/63 12/04/16 06:00 O2 Sat by Pulse Oximetry (%) 96 12/03/16 21:00 Constitutional: Yes: No Distress Eyes: Yes: Conjunctiva Clear Cardiovascular: Yes: Regular Rate and Rhythm, S1, S2 Respiratory: Yes: CTA Bilaterally Gastrointestinal: Yes: Normal Bowel Sounds, Soft, Abdomen, Obese. No: Tenderness Labs: CBC, BMP 12/04/16 06:30 12/04/16 06:00 INR, PTT INR 1.78 (0.82-1.09) H 12/04/16 06:30 Assessment/Plan Biliary pancreatitis improved LFTs trending downward Chronic cholecystitis Diabetes mellitus Continue empiric zosyn GI/ Surgical followup
--- NOTE | 2016-12-04 15:12 | PN ---
Progress Note, Physician History of Present Illness: No chest pain or dyspnea. - Current Medication List Current Medications: Active Medications Atenolol (Tenormin -) 25 mg PO DAILY [facility] Last Admin: 12/04/16 10:18 Dose: 25 mg Atorvastatin Calcium (Lipitor -) 40 mg PO HS [facility] Last Admin: 12/03/16 21:36 Dose: 40 mg Diltiazem HCl (Cardizem Cd -) 120 mg PO BID [facility] Last Admin: 12/04/16 10:18 Dose: 120 mg Potassium Chloride/Dextrose/Sod Cl (D5-1/2ns+20 Meq Kcl -) 1,000 mls @ 75 mls/ hr IV ASDIR [facility] Last Admin: 12/04/16 03:01 Dose: Not Given Piperacillin Sod/Tazobactam Sod (Zosyn 4.5gm Ivpb (Pre-Docked)) 100 mls @ 200 mls/hr IVPB Q8H-IV [facility] PRN Reason: Protocol Last Admin: 12/04/16 10:19 Dose: 200 mls/hr Ondansetron HCl (Zofran Injection) 4 mg IVPB Q6H PRN PRN Reason: NAUSEA Pantoprazole Sodium (Protonix -) 40 mg PO DAILY [facility] Last Admin: 12/04/16 10:17 Dose: 40 mg - Objective Vital Signs: Vital Signs Temperature 98.4 F 12/04/16 14:04 Pulse Rate 58 L 12/04/16 14:04 Respiratory Rate 20 12/04/16 09:00 Blood Pressure 152/87 12/04/16 14:04 O2 Sat by Pulse Oximetry (%) 98 12/04/16 09:00 Constitutional: Yes: Well Nourished, No Distress Eyes: Yes: Conjunctiva Clear, EOM Intact HENT: Yes: Atraumatic, Normocephalic Cardiovascular: Yes: Regular Rate and Rhythm. No: Murmur Respiratory: Yes: CTA Bilaterally Gastrointestinal: Yes: Normal Bowel Sounds, Soft Edema: No Neurological: Yes: Alert, Oriented Labs: CBC, BMP 12/04/16 06:30 12/04/16 06:00 INR, PTT INR 1.78 (0.82-1.09) H 12/04/16 06:30 Assessment/Plan 66 yo female with morbid obesity, HTN, paroxysmal atrial fibrillation (on coumadin), HTN, DM type 2. Admitted with pancreatitis. Currently pending cholecystectomy by Dr. Romano from general surgery. Patient was last seen by Dr. Ephraim Aguero ([facility] cardiology) on 09/25/[address] [place] [address]. RECS: Patient does not have any cardiac contraindications to her pending cholecystectomy (and other GI procedures if clinically indicated) and may proceed without further cardiac work-up. Coumadin currently being held in preparation for pending surgery. INR 1.78 today. Patient does not require bridging with heparin gtt as patient remains in sinus rhythm today per cardiac exam. Continue atenolol and diltiazem. BP mildly elevated today. Will resume patient' s HCTZ. May resume coumadin post-operatively when OK per surgery. Further recs as per primary care team, general surgery, and GI. Will see prn. Please call with questions.
[2016-12-04] MEDS: HYDROCHLOROTHIAZIDE 25 MG TABLET (FP) PO SCH (16:29)
[2016-12-04] MEDS: ATORVASTATIN CA 40 MG TABLET (FP) PO SCH (21:22)
[2016-12-05] MEDS: D5-1/2NS+20 MEQ KCL - 1,000 ML IV SCH (02:05)
[2016-12-05] MEDS: PIPERACILLIN/TAZOB 4.5 GM 100 ML IVPB SCH ×3 (02:10→17:49)
[2016-12-05 07:26] LABS: MCH 32.8 pg (25.7-33.7); MCHC 34.3 g/dl (32.0-36.0); MEAN CELL VOLUME 95.5 fl (80-96); MEAN PLT VOLUME 8.9 fl (7.5-11.1); PLATELET COUNT 229 K/MM3 (134-434); WHITE BLOOD COUNT 5.7 K/mm3 (4.0-10.0)
--- NOTE | 2016-12-05 08:59 | PN ---
Progress Note, Physician History of Present Illness: NO PAIN - Current Medication List Current Medications: Active Medications Atenolol (Tenormin -) 25 mg PO DAILY [facility] Last Admin: 12/04/16 10:18 Dose: 25 mg Atorvastatin Calcium (Lipitor -) 40 mg PO HS [facility] Last Admin: 12/04/16 21:22 Dose: 40 mg Diltiazem HCl (Cardizem Cd -) 120 mg PO BID [facility] Last Admin: 12/04/16 21:22 Dose: 120 mg Hydrochlorothiazide (Hctz -) 25 mg PO DAILY [facility] Last Admin: 12/04/16 16:29 Dose: 25 mg Potassium Chloride/Dextrose/Sod Cl (D5-1/2ns+20 Meq Kcl -) 1,000 mls @ 75 mls/ hr IV ASDIR [facility] Last Admin: 12/05/16 02:05 Dose: Not Given Piperacillin Sod/Tazobactam Sod (Zosyn 4.5gm Ivpb (Pre-Docked)) 100 mls @ 200 mls/hr IVPB Q8H-IV [facility] PRN Reason: Protocol Last Admin: 12/05/16 02:10 Dose: 200 mls/hr Ondansetron HCl (Zofran Injection) 4 mg IVPB Q6H PRN PRN Reason: NAUSEA Pantoprazole Sodium (Protonix -) 40 mg PO DAILY [facility] Last Admin: 12/04/16 10:17 Dose: 40 mg - Objective Vital Signs: Vital Signs Temperature 98.2 F 12/05/16 05:49 Pulse Rate 58 L 12/05/16 05:49 Respiratory Rate 20 12/05/16 05:49 Blood Pressure 130/60 12/05/16 05:49 O2 Sat by Pulse Oximetry (%) 98 12/04/16 21:00 Cardiovascular: Yes: Regular Rate and Rhythm Respiratory: Yes: Regular, CTA Bilaterally Gastrointestinal: Yes: Normal Bowel Sounds, Soft Breast(s): Yes: Right (SWOLLEN) Edema: No Labs: CBC, BMP 12/05/16 06:30 INR, PTT INR 1.78 (0.82-1.09) H 12/04/16 06:30 Problem List - Problems (1) Pancreatitis Assessment/Plan: R/O GALLSTONE PANCREATITIS CT SCAN NOTED IV ABX GI AND SURGICAL CONSULT NOTED UNABLE TO DO MRCP LFT IMPROVING--FOR OR Code(s): K85.90 - ACUTE PANCREATITIS WITHOUT NECROSIS OR INFECTION, UNSP Qualifiers: Pancreatitis type: biliary (2) Abdominal pain Assessment/Plan: ABOVE FOLLOW LABS FOR SURGERY TODAY Code(s): R10.9 - UNSPECIFIED ABDOMINAL PAIN Qualifiers: Abdominal location: epigastric Qualified Code(s): R10.13 - Epigastric pain (3) Atrial fibrillation Assessment/Plan: HOLD COUMADIN--RESUME POSTOP MONITOR INR Code(s): I48.91 - UNSPECIFIED ATRIAL FIBRILLATION (4) HTN (hypertension) Assessment/Plan: STABLE ON CURRENT MEDS START HEPARIN EKG Code(s): I10 - ESSENTIAL (PRIMARY) HYPERTENSION Qualifiers: Hypertension type: essential hypertension Qualified Code(s): I10 - Essential (primary) hypertension (5) Hypokalemia Assessment/Plan: REPLACED Code(s): E87.6 - HYPOKALEMIA (6) Gall bladder disease Assessment/Plan: FOR SURGERY TODAY MONITOR LABS Code(s): K82.9 - DISEASE OF GALLBLADDER, UNSPECIFIED (7) Breast edema Assessment/Plan: DC IV MONITOR Code(s): N64.89 - OTHER SPECIFIED DISORDERS OF BREAST
[2016-12-05 09:03] LABS: INR 1.84 (0.82-1.09); PROTHROMBIN TIME (PATIENT) 20.5 SEC (9.98-11.88)
[2016-12-05 09:18] LABS: CO2 27 mmol/L (21-32); CREATININE 0.8 mg/dL (0.55-1.02); GLUCOSE,RANDOM 127 mg/dL (74-106)
[2016-12-05 09:19] LABS: ALBUMIN 2.9 g/dl (3.4-5.0); ALK PHOS 208 U/L (45-117); ANION GAP 11 (8-16); CALCIUM 8.9 mg/dL (8.5-10.1); SGOT/AST 42 U/L (15-37); SGPT/ALT 104 U/L (12-78); TOT PROT 6.6 g/dl (6.4-8.2)
[2016-12-05] MEDS: ATENOLOL 50 MG TABLET (FP) PO SCH (10:06)
[2016-12-05] MEDS: PANTOPRAZOLE 40 MG TABLET (FP) PO SCH (10:06)
[2016-12-05] MEDS: HYDROCHLOROTHIAZIDE 25 MG TABLET (FP) PO SCH (10:06)
[2016-12-05] MEDS ORDERED: PHYTONADIONE 10 MG/1 ML AMP IVPB ONE (10:45)
[2016-12-05] MEDS ORDERED: MIDAZOLAM HCL 2 MG/2 ML SINGLE DOSE VIAL ONE (12:30)
[2016-12-05] MEDS ORDERED: ROCURONIUM BROMIDE 50 MG/5 ML VIAL ONE ×2 (12:30→13:29)
[2016-12-05] MEDS ORDERED: LIDOCAINE HCL/PF 2% SDV 5ML VIAL ONE (12:31)
[2016-12-05] MEDS ORDERED: PROPOFOL 20 ML ONE ×2 (12:31→14:19)
[2016-12-05] MEDS ORDERED: morphine CARPU-JECT 4 MG/1 ML DISP.SYRIN IVPB PRN (12:47)
[2016-12-05] MEDS ORDERED: ACETAMINOPHEN 325 MG TABLET (FP) PO PRN (12:47)
[2016-12-05] MEDS ORDERED: NEOSTIGMINE METHYLSULFATE 0.5 MG/ML - 10 ML MDV ONE (14:15)
[2016-12-05] MEDS ORDERED: GLYCOPYRROLATE 0.2 MG/1 ML VIAL ONE (14:15)
--- NOTE | 2016-12-05 14:42 | OP ---
Operative Note - Note: Operative Date: 12/05/16 Pre-Operative Diagnosis: cholelithiasis, abnormal lfts, choledocholithiasis, pancreatitis Operation: laparoscopic cholecystecotmy, lavage Findings: adhesions in midline at previous laparotomy, chronic cholecystitis Post-Operative Diagnosis: Same as Pre-op Surgeon: Yazan Hubbard Anesthesiologist/PACKING LINE WORKER: Renetta Pemberton MD Anesthesia: General Specimens Removed: gb Estimated Blood Loss (mls): 20
[2016-12-05] MEDS ORDERED: ONDANSETRON 4 MG/2 ML VIAL IVPB PRN (15:35)
[2016-12-05] MEDS ORDERED: D5-1/2NS+20 MEQ KCL - 1,000 ML IV SCH (15:35)
[2016-12-05] MEDS: ATORVASTATIN CA 40 MG TABLET (FP) PO SCH (21:10)
[2016-12-06] MEDS: PIPERACILLIN/TAZOB 4.5 GM 100 ML IVPB SCH ×3 (01:26→16:59)
[2016-12-06] MEDS: oxyCODONE HCL 5 MG TABLET PO PRN ×2 (03:52→21:05)
--- NOTE | 2016-12-06 08:41 | PN ---
Progress Note, Physician History of Present Illness: FEELS BETTER S/P CHOLECYSTECTOMY - Current Medication List Current Medications: Active Medications Acetaminophen (Tylenol -) 650 mg PO Q4H PRN PRN Reason: FEVER OR PAIN Atenolol (Tenormin -) 25 mg PO DAILY [facility] Atorvastatin Calcium (Lipitor -) 40 mg PO HS [facility] Last Admin: 12/05/16 21:10 Dose: 40 mg Diltiazem HCl (Cardizem Cd -) 120 mg PO BID [facility] Last Admin: 12/05/16 21:10 Dose: 120 mg Enoxaparin Sodium (Lovenox -) 40 mg SQ DAILY [facility] Fentanyl (Sublimaze Injection -) 50 mcg IVPUSH [id number] PRN PRN Reason: PAIN Stop: 12/08/16 14:10 Last Admin: 12/05/16 16:25 Dose: 50 mcg Hydrochlorothiazide (Hctz -) 25 mg PO DAILY [facility] Piperacillin Sod/Tazobactam Sod (Zosyn 4.5gm Ivpb (Pre-Docked)) 100 mls @ 200 mls/hr IVPB Q8H-IV [facility] PRN Reason: Protocol Last Admin: 12/06/16 01:26 Dose: 200 mls/hr Ondansetron HCl (Zofran Injection) 4 mg IVPB Q6H PRN PRN Reason: NAUSEA Oxycodone HCl (Roxicodone -) 7.5 mg PO Q4H PRN PRN Reason: PAIN Last Admin: 12/06/16 03:52 Dose: 7.5 mg Pantoprazole Sodium (Protonix -) 40 mg PO DAILY [facility] - Objective Vital Signs: Vital Signs Temperature 98.6 F 12/06/16 06:00 Pulse Rate 68 12/06/16 06:00 Respiratory Rate 18 12/06/16 06:00 Blood Pressure 152/80 12/06/16 06:00 O2 Sat by Pulse Oximetry (%) 96 12/05/16 21:00 Cardiovascular: Yes: Regular Rate and Rhythm Respiratory: Yes: Diminished, Rales Gastrointestinal: Yes: Normal Bowel Sounds, Soft, Other (SANDRA INTACT) Edema: No Neurological: Yes: Alert, Oriented Labs: INR, PTT INR 1.84 (0.82-1.09) H 12/05/16 08:30 Problem List - Problems (1) Gall bladder disease Assessment/Plan: PER SURGERY Operative Date: 12/05/16 Pre-Operative Diagnosis: cholelithiasis, abnormal lfts, choledocholithiasis, pancreatitis Operation: laparoscopic cholecystecotmy, lavage Findings: adhesions in midline at previous laparotomy, chronic cholecystitis Post-Operative Diagnosis: Same as Pre-op Surgeon: Yazan Hubbard Code(s): K82.9 - DISEASE OF GALLBLADDER, UNSPECIFIED (2) Pancreatitis Assessment/Plan: RESOLVED CT SCAN NOTED IV ABX GI AND SURGICAL CONSULT NOTED UNABLE TO DO MRCP LFT IMPROVING-- S/P CHOECYSTECTOMY Code(s): K85.90 - ACUTE PANCREATITIS WITHOUT NECROSIS OR INFECTION, UNSP Qualifiers: Pancreatitis type: biliary (3) Abdominal pain Code(s): R10.9 - UNSPECIFIED ABDOMINAL PAIN Qualifiers: Abdominal location: epigastric Qualified Code(s): R10.13 - Epigastric pain (4) Atrial fibrillation Assessment/Plan: -RESUME IF OK WITH SURGERY MONITOR INR Code(s): I48.91 - UNSPECIFIED ATRIAL FIBRILLATION (5) HTN (hypertension) Assessment/Plan: STABLE ON CURRENT MEDS START HEPARIN EKG Code(s): I10 - ESSENTIAL (PRIMARY) HYPERTENSION Qualifiers: Hypertension type: essential hypertension Qualified Code(s): I10 - Essential (primary) hypertension (6) Hypokalemia Code(s): E87.6 - HYPOKALEMIA (7) Breast edema Assessment/Plan: RESOLVING DC IV MONITOR Code(s): N64.89 - OTHER SPECIFIED DISORDERS OF BREAST (8) CHF (congestive heart failure) Assessment/Plan: CXR BNP DC IVF Code(s): I50.9 - HEART FAILURE, UNSPECIFIED
[2016-12-06 08:50] LABS: MCH 32.3 pg (25.7-33.7); MCHC 33.8 g/dl (32.0-36.0); MEAN CELL VOLUME 95.5 fl (80-96); MEAN PLT VOLUME 8.7 fl (7.5-11.1); PLATELET COUNT 238 K/MM3 (134-434); WHITE BLOOD COUNT 12.9 K/mm3 (4.0-10.0)
[2016-12-06 09:01] LABS: ALBUMIN 2.7 g/dl (3.4-5.0); ALK PHOS 199 U/L (45-117); ANION GAP 10 (8-16); BILIRUBIN,TOTAL 1.2 mg/dL (0.2-1.0); CALCIUM 8.6 mg/dL (8.5-10.1); CO2 28 mmol/L (21-32); CREATININE 0.7 mg/dL (0.55-1.02); GLUCOSE,RANDOM 120 mg/dL (74-106); SGOT/AST 79 U/L (15-37); SGPT/ALT 109 U/L (12-78); TOT PROT 6.5 g/dl (6.4-8.2)
--- NOTE | 2016-12-06 09:48 | OP ---
DATE OF OPERATION: 12/05/2016 PREOPERATIVE DIAGNOSES: Cholelithiasis, choledocholithiasis, pancreatitis, abnormal liver function tests. POSTOPERATIVE DIAGNOSES: Cholelithiasis, choledocholithiasis, pancreatitis, abnormal liver function tests. PROCEDURE: Laparoscopic cholecystectomy and lavage. SURGEON: Yazan Hubbard DO POSTAL SORTING OFFICER: None. ANESTHESIOLOGIST: Renetta Pemberton MD (general) SPECIMEN: Gallbladder. INTRAOPERATIVE FINDINGS: Adhesions to the midline of the abdominal wall from previous laparotomy and a pale chronically thickened gallbladder consistent with chronic cholecystitis. BLOOD LOSS: Approximately 20 mL. DRAINS: None. COMPLICATIONS: None. DISPOSITION: Recovery in stable condition. BRIEF HISTORY: This is a 66-year-old female, super obese, presented to [facility] with signs and symptoms of biliary pancreatitis as well as choledocholithiasis. She had a clinical picture of a passed stone and her pancreatitis resolved clinically as well as chemically and her liver function tests improved. She was unable to have an MRCP due to her body habitus and ERCP was felt not indicated by the GI service. She also presented fully anticoagulated on Coumadin and her coagulopathy was allowed to reverse and at the time of surgery her INR is 1.8. Vitamin K had been given preoperatively. It was felt that the patient was unlikely to be a significant bleeding risk under direct surgical visualization and the risk of FFP was not warranted prophylactically. Patient also was unable to completely normalize her INR secondary to antibiotics. PROCEDURE: The patient was placed in the supine position. After general anesthesia was initiated, the abdomen was prepped and draped in sterile fashion. The patient was already on Zosyn antibiotic. Her breasts had to be lifted out of the operative field using tape. Next, a cutdown was done subxiphoid with scalpel going through skin and subcutaneous tissue. The fascia was opened in the midline. The peritoneum entered sharply. There were no adhesions noted at this level. A 0 Vicryl stitch was placed across the fascial defect as the Carina trocar was inserted and pneumoperitoneum was created. Next, a 10-mm 0-degree laparoscope was inserted. An attempt was made to look back toward the umbilicus. There were multiple adhesions in this area. At this point, the right upper quadrant was able to be seen and two 5-mm trocars were placed. Next, a careful sharp dissection was done in order to free up adhesions toward the midline. At this point, approximately 2 inches to the right of the umbilicus a cut was made and an 11-mm trocar was inserted through the rectus muscle in this location. This was done in order to prevent further lysis of adhesions and risk of inadvertent injury. Next, the scope was switched to the 11-mm trocar to the right of the umbilicus. Attention was then turned toward the gallbladder. There were adhesions of the gallbladder to omentum which were sharply taken down. The fundus was then lifted cephalad. The infundibulum retracted laterally. A thickened sclerosed peritoneal peel was dissected down, exposing a small cystic duct and cystic artery. Because of the inability to have an MRCP and the lack of ERCP, decision was made to use an Endo-LICO Ultra stapler in order to divide the cystic duct. This was done with a vascular load in 1 firing. The staple line was inspected. It was intact. There was no bleeding, no breaks, no sign of ischemia, and there was no bile leakage from the cystic duct stump. Next, the cystic artery was clipped and divided. The gallbladder was then liberated from the liver bed using electrocautery. Hemostasis was maintained using electrocautery. The gallbladder was then placed in a specimen bag and removed through the subxiphoid trocar site, sent to Pathology marked as specimen. Next, a limited lavage was done. All return was clear. Trocars were removed under direct visualization. No bleeding was seen. Pneumoperitoneum was released. The fascia of the subxiphoid trocar site was closed with multiple interrupted 0 Vicryl sutures. Also, the trocar site to the right of the umbilicus was also closed with multiple interrupted 0 Vicryl sutures. Due to the patient's body habitus, that skin incision had to be lengthened in order to allow visualization of the fascial closure. Also of note, an additional 5-mm trocar was used below the subxiphoid trocar as the subxiphoid trocar was too superior in location for effective dissection. At this point, the 5 skin incisions were closed with yaritza and Dermabond dressing was placed. Blood loss was approximately 20 mL and the patient's disposition was to recovery room in stable condition. DO PHILIPPE BARROS/[id number] cc: Bobbi Fried MD MTDD
[2016-12-06] MEDS: ENOXAPARIN NA (PORCINE) 40 MG/0.4 ML DISP.SYRIN SQ SCH (10:07)
[2016-12-06] MEDS: HYDROCHLOROTHIAZIDE 25 MG TABLET (FP) PO SCH (10:08)
[2016-12-06] MEDS: ATENOLOL 25 MG TABLET (FP) PO SCH (10:08)
[2016-12-06] MEDS: PANTOPRAZOLE 40 MG TABLET (FP) PO SCH (10:08)
--- NOTE | 2016-12-06 11:38 | PN ---
Progress Note (short form) - Note Progress Note: surgery s/p laparoscopic cholecystectomy. on regular diet. afebrile. vss. ok to start full anticoagulation. surgically stable for d/c if tolerating diet. f/u in 2 weeks for staple removal. ok to shower. ok to drive. no lifting. 2 weeks off work. abnormal lfts per gi. no surgical need for abx. [phone]
--- NOTE | 2016-12-06 15:18 | PN ---
Progress Note, Physician History of Present Illness: Post op laparoscopic cholecystectomy No c/o abdominal pain No c/o fever/ chills Afebrile WBC slightly elevated - Current Medication List Current Medications: Active Medications Acetaminophen (Tylenol -) 650 mg PO Q4H PRN PRN Reason: FEVER OR PAIN Atenolol (Tenormin -) 25 mg PO DAILY [facility] Last Admin: 12/06/16 10:08 Dose: 25 mg Atorvastatin Calcium (Lipitor -) 40 mg PO HS [facility] Last Admin: 12/05/16 21:10 Dose: 40 mg Diltiazem HCl (Cardizem Cd -) 120 mg PO BID [facility] Last Admin: 12/06/16 10:08 Dose: 120 mg Enoxaparin Sodium (Lovenox -) 40 mg SQ DAILY [facility] Last Admin: 12/06/16 10:07 Dose: 40 mg Fentanyl (Sublimaze Injection -) 50 mcg IVPUSH [id number] PRN PRN Reason: PAIN Stop: 12/08/16 14:10 Last Admin: 12/05/16 16:25 Dose: 50 mcg Hydrochlorothiazide (Hctz -) 25 mg PO DAILY [facility] Last Admin: 12/06/16 10:08 Dose: 25 mg Piperacillin Sod/Tazobactam Sod (Zosyn 4.5gm Ivpb (Pre-Docked)) 100 mls @ 200 mls/hr IVPB Q8H-IV ALANNAH PRN Reason: Protocol Last Admin: 12/06/16 10:09 Dose: 200 mls/hr Ondansetron HCl (Zofran Injection) 4 mg IVPB Q6H PRN PRN Reason: NAUSEA Oxycodone HCl (Roxicodone -) 7.5 mg PO Q4H PRN PRN Reason: PAIN Last Admin: 12/06/16 03:52 Dose: 7.5 mg Pantoprazole Sodium (Protonix -) 40 mg PO DAILY [facility] Last Admin: 12/06/16 10:08 Dose: 40 mg Warfarin Sodium (Coumadin -) 5 mg PO DAILY@1800 [facility] - Objective Vital Signs: Vital Signs Temperature 98.9 F 12/06/16 14:45 Pulse Rate 59 L 12/06/16 14:45 Respiratory Rate 18 12/06/16 10:00 Blood Pressure 128/55 12/06/16 14:45 O2 Sat by Pulse Oximetry (%) 97 12/06/16 09:00 Constitutional: Yes: No Distress, Obese Eyes: Yes: Conjunctiva Clear Cardiovascular: Yes: Regular Rate and Rhythm, S1, S2 Respiratory: Yes: CTA Bilaterally Gastrointestinal: Yes: Normal Bowel Sounds, Soft. No: Tenderness Integumentary: Yes: Other (Surgical wounds with yaritza in place) Labs: CBC, BMP 12/06/16 06:15 12/06/16 07:45 INR, PTT INR 1.84 (0.82-1.09) H 12/05/16 08:30 Assessment/Plan Biliary pancreatitis improved Chronic cholecystitis s/p laparoscopic cholecystectomy Diabetes mellitus Continue empiric zosyn milan-operatively
[2016-12-06] MEDS ORDERED: FUROSEMIDE 40 MG/4 ML INJECTABLE VIAL IVPUSH ONE (16:02)
--- NOTE | 2016-12-06 16:44 | PN ---
Progress Note (short form) - Note Progress Note: Anesthesia postop note 66 y/o F s/p GA for laparoscopic cholecystectomy POD#1, vss, aaox3, pain well controlled, no complaints. No recall, no anesthesia complcations.
[2016-12-06] MEDS: WARFARIN NA 5 MG TABLET (UD) PO SCH (16:59)
--- NOTE | 2016-12-06 18:01 | PN ---
Progress Note, Physician Chief Complaint: Cardiology Follow up Paroxysmal AFib History of Present Illness: No events. No current complaints. In her POP D1 laparoscopic cholecystectomy Systemic AC was restarted today. - Current Medication List Current Medications: Active Medications Acetaminophen (Tylenol -) 650 mg PO Q4H PRN PRN Reason: FEVER OR PAIN Atenolol (Tenormin -) 25 mg PO DAILY [facility] Last Admin: 12/06/16 10:08 Dose: 25 mg Atorvastatin Calcium (Lipitor -) 40 mg PO HS [facility] Last Admin: 12/05/16 21:10 Dose: 40 mg Diltiazem HCl (Cardizem Cd -) 120 mg PO BID [facility] Last Admin: 12/06/16 10:08 Dose: 120 mg Enoxaparin Sodium (Lovenox -) 40 mg SQ DAILY [facility] Last Admin: 12/06/16 10:07 Dose: 40 mg Fentanyl (Sublimaze Injection -) 50 mcg IVPUSH [id number] PRN PRN Reason: PAIN Stop: 12/08/16 14:10 Last Admin: 12/05/16 16:25 Dose: 50 mcg Hydrochlorothiazide (Hctz -) 25 mg PO DAILY [facility] Last Admin: 12/06/16 10:08 Dose: 25 mg Piperacillin Sod/Tazobactam Sod (Zosyn 4.5gm Ivpb (Pre-Docked)) 100 mls @ 200 mls/hr IVPB Q8H-IV ALANNAH PRN Reason: Protocol Last Admin: 12/06/16 16:59 Dose: 200 mls/hr Ondansetron HCl (Zofran Injection) 4 mg IVPB Q6H PRN PRN Reason: NAUSEA Oxycodone HCl (Roxicodone -) 7.5 mg PO Q4H PRN PRN Reason: PAIN Last Admin: 12/06/16 03:52 Dose: 7.5 mg Pantoprazole Sodium (Protonix -) 40 mg PO DAILY [facility] Last Admin: 12/06/16 10:08 Dose: 40 mg Warfarin Sodium (Coumadin -) 5 mg PO DAILY@1800 [facility] Last Admin: 12/06/16 16:59 Dose: 5 mg - Objective Vital Signs: Vital Signs Temperature 98.9 F 12/06/16 14:45 Pulse Rate 59 L 12/06/16 14:45 Respiratory Rate 18 12/06/16 10:00 Blood Pressure 128/55 12/06/16 14:45 O2 Sat by Pulse Oximetry (%) 97 12/06/16 09:00 Constitutional: Yes: Well Nourished, No Distress, Calm Cardiovascular: Yes: Regular Rate and Rhythm, S1, S2. No: JVD, Murmur, S3, S4 Respiratory: Yes: CTA Bilaterally Gastrointestinal: Yes: Normal Bowel Sounds, Soft, Abdomen, Obese (Surgical scars ) Edema: No Neurological: Yes: Alert, Oriented Labs: CBC, BMP 12/06/16 06:15 12/06/16 07:45 INR, PTT INR 1.84 (0.82-1.09) H 12/05/16 08:30 - ....Imaging Chest X-ray: Report Reviewed EKG: Image Reviewed (NSR. Normal axis. No ST-T changes) Assessment/Plan 66 yo female with morbid obesity, HTN, paroxysmal atrial fibrillation (on coumadin), HTN, DM, HLD, admitted with pancreatitis s/p laparoscopic cholecystectomy (POP D1). Tolerating po. No current complaints. Systemic AC was re-initiated. RECS: Non-valvular pAFib - [id number] - Vasc Score: 3. On rate control and systemic AC. Patient requires systemic AC for primary prevention of stroke and thromboembolic events. Please keep INR 2-3. Continue Atenolol and Diltiazem. BP mildly elevated today. Please resume patient 's HCTZ if required for BP control. Further recs as per primary care team, general surgery, and GI. Patient to be followed in the cardiology clinic. Please call with questions. Thank you.
--- NOTE | 2016-12-06 20:02 | PN ---
GI Progress Note Subjective: GASTROENTEROLOGY TAKEN FOR LAP AMISHA BUT NO INTRAOPERATIVE CHOLANGIOGRAM PERFORMED SHE FEELS WELL NO PAIN TOLERATES DIET AND WANTS TO GO HOME SEEN WALKING AROUND IN HER ROOM. - Objective Vital Signs: Vital Signs Temperature 98.9 F 12/06/16 14:45 Pulse Rate 59 L 12/06/16 14:45 Respiratory Rate 18 12/06/16 10:00 Blood Pressure 128/55 12/06/16 14:45 O2 Sat by Pulse Oximetry (%) 97 12/06/16 09:00 Constitutional: No Distress, Calm Eyes: Yes: Conjunctiva Clear Cardiovascular: Yes: WNL Respiratory: Yes: WNL Gastrointestinal Inspection: Yes: WNL ...Auscultate: Yes: Normoactive Bowel Sounds ...Palpate: Yes: Soft Extremities: Yes: WNL Wound/Incision: Yes: Clean/Dry Labs: CBC, BMP 12/06/16 06:15 12/06/16 07:45 INR, PTT INR 1.84 (0.82-1.09) H 12/05/16 08:30 Laboratory Tests 12/06/16 07:45 Total Bilirubin 1.2 H AST 79 H D ALT 109 H Alkaline Phosphatase 199 H Problem List - Problems (1) Gallstone pancreatitis Assessment/Plan: DISCHARGE PER SURGERY OFFICE FOLLOW UP IN A COUPLE OF WEEKS REPEAT LABS FROM THE OFFICE NEXT WEEK Code(s): K85.10 - BILIARY ACUTE PANCREATITIS WITHOUT NECROSIS OR INFECTION (2) History of acute cholecystitis Code(s): Z87.19 - PERSONAL HISTORY OF OTHER DISEASES OF THE DIGESTIVE SYSTEM
[2016-12-06] MEDS: ATORVASTATIN CA 40 MG TABLET (FP) PO SCH (21:05)
[2016-12-07] MEDS: PIPERACILLIN/TAZOB 4.5 GM 100 ML IVPB SCH ×2 (01:33→10:38)
[2016-12-07] MEDS: oxyCODONE HCL 5 MG TABLET PO PRN (07:40)
[2016-12-07 09:05] LABS: BASOPHIL 0.7 % (0-2.0); MCH 32.2 pg (25.7-33.7); MCHC 33.6 g/dl (32.0-36.0); MEAN CELL VOLUME 95.8 fl (80-96); MEAN PLT VOLUME 8.8 fl (7.5-11.1); NEUTROPHILS 73.6 % (42.8-82.8); PLATELET COUNT 260 K/MM3 (134-434); RDW 14.1 % (11.6-15.6); WHITE BLOOD COUNT 12.1 K/mm3 (4.0-10.0)
[2016-12-07 09:18] LABS: ALBUMIN 2.8 g/dl (3.4-5.0); BILIRUBIN,TOTAL 1.3 mg/dL (0.2-1.0); COCKROFT - GAULT 115.311; TOT PROT 7.2 g/dl (6.4-8.2)
[2016-12-07 09:20] LABS: INR 1.18 (0.82-1.09)
--- NOTE | 2016-12-07 10:31 | PN ---
Progress Note, Physician Chief Complaint: no bm x 4 days on liquid diet no abd pain - Current Medication List Current Medications: Active Medications Acetaminophen (Tylenol -) 650 mg PO Q4H PRN PRN Reason: FEVER OR PAIN Atenolol (Tenormin -) 25 mg PO DAILY [facility] Last Admin: 12/06/16 10:08 Dose: 25 mg Atorvastatin Calcium (Lipitor -) 40 mg PO HS [facility] Last Admin: 12/06/16 21:05 Dose: 40 mg Diltiazem HCl (Cardizem Cd -) 120 mg PO BID [facility] Last Admin: 12/06/16 21:06 Dose: 120 mg Enoxaparin Sodium (Lovenox -) 40 mg SQ DAILY [facility] Last Admin: 12/06/16 10:07 Dose: 40 mg Fentanyl (Sublimaze Injection -) 50 mcg IVPUSH [id number] PRN PRN Reason: PAIN Stop: 12/08/16 14:10 Last Admin: 12/05/16 16:25 Dose: 50 mcg Hydrochlorothiazide (Hctz -) 25 mg PO DAILY [facility] Last Admin: 12/06/16 10:08 Dose: 25 mg Piperacillin Sod/Tazobactam Sod (Zosyn 4.5gm Ivpb (Pre-Docked)) 100 mls @ 200 mls/hr IVPB Q8H-IV ALANNAH PRN Reason: Protocol Last Admin: 12/07/16 01:33 Dose: 200 mls/hr Ondansetron HCl (Zofran Injection) 4 mg IVPB Q6H PRN PRN Reason: NAUSEA Oxycodone HCl (Roxicodone -) 7.5 mg PO Q4H PRN PRN Reason: PAIN Last Admin: 12/07/16 07:40 Dose: 7.5 mg Pantoprazole Sodium (Protonix -) 40 mg PO DAILY [facility] Last Admin: 12/06/16 10:08 Dose: 40 mg Warfarin Sodium (Coumadin -) 5 mg PO DAILY@1800 [facility] Last Admin: 12/06/16 16:59 Dose: 5 mg - Objective Vital Signs: Vital Signs Temperature 99.9 F H 12/07/16 06:00 Pulse Rate 58 L 12/07/16 06:00 Respiratory Rate 20 12/07/16 06:00 Blood Pressure 176/80 12/07/16 06:00 O2 Sat by Pulse Oximetry (%) 98 12/06/16 21:00 Constitutional: Yes: Calm Neck: Yes: WNL Cardiovascular: Yes: WNL Respiratory: Yes: WNL Gastrointestinal: Yes: WNL Edema: Yes Labs: CBC, BMP 12/07/16 08:15 12/07/16 08:15 INR, PTT INR 1.18 (0.82-1.09) H D 12/07/16 08:15 Assessment/Plan (1) Gall bladder disease Assessment/Plan: Operative Date: 12/05/16 Pre-Operative Diagnosis: cholelithiasis, abnormal lfts, choledocholithiasis, pancreatitis Operation: laparoscopic cholecystecotmy, lavage Findings: adhesions in midline at previous laparotomy, chronic cholecystitis Post-Operative Diagnosis: Same as Pre-op Surgeon: Yazan Hubbard Code(s): K82.9 - DISEASE OF GALLBLADDER, UNSPECIFIED (2) Pancreatitis Assessment/Plan: RESOLVED CT SCAN NOTED IV ABX GI AND SURGICAL CONSULT NOTED UNABLE TO DO MRCP LFT IMPROVING-- S/P CHOECYSTECTOMY Code(s): K85.90 - ACUTE PANCREATITIS WITHOUT NECROSIS OR INFECTION, UNSP Qualifiers: Pancreatitis type: biliary (3) Abdominal pain Code(s): R10.9 - UNSPECIFIED ABDOMINAL PAIN Qualifiers: Abdominal location: epigastric Qualified Code(s): R10.13 - Epigastric pain (4) Atrial fibrillation Assessment/Plan: LOVENOX WARARIN -> NEED INR >2 Code(s): I48.91 - UNSPECIFIED ATRIAL FIBRILLATION (5) HTN (hypertension) Assessment/Plan: STABLE ON CURRENT MEDS EKG Code(s): I10 - ESSENTIAL (PRIMARY) HYPERTENSION Qualifiers: Hypertension type: essential hypertension Qualified Code(s): I10 - Essential (primary) hypertension (6) Hypokalemia Code(s): E87.6 - HYPOKALEMIA (7) Breast edema Assessment/Plan: RESOLVING DC IV MONITOR Code(s): N64.89 - OTHER SPECIFIED DISORDERS OF BREAST (8) CHF (congestive heart failure) Assessment/Plan: CARDIO ON CASE BNP 350 DC IVF Code(s): I50.9 - HEART FAILURE, 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
[2016-12-07] MEDS: ATENOLOL 25 MG TABLET (FP) PO SCH (10:38)
[2016-12-07] MEDS: ENOXAPARIN NA (PORCINE) 40 MG/0.4 ML DISP.SYRIN SQ SCH (10:38)
[2016-12-07] MEDS: HYDROCHLOROTHIAZIDE 25 MG TABLET (FP) PO SCH (10:39)
[2016-12-07] MEDS: PANTOPRAZOLE 40 MG TABLET (FP) PO SCH (10:39)
--- NOTE | 2016-12-07 13:01 | PN ---
Progress Note, Physician History of Present Illness: No c/o abdominal pain at rest C/O abdo pain with cough, constipation Tolerating diet Afebrile - Current Medication List Current Medications: Active Medications Acetaminophen (Tylenol -) 650 mg PO Q4H PRN PRN Reason: FEVER OR PAIN Atenolol (Tenormin -) 25 mg PO DAILY [facility] Last Admin: 12/07/16 10:38 Dose: 25 mg Atorvastatin Calcium (Lipitor -) 40 mg PO HS [facility] Last Admin: 12/06/16 21:05 Dose: 40 mg Diltiazem HCl (Cardizem Cd -) 120 mg PO BID [facility] Last Admin: 12/07/16 10:39 Dose: 120 mg Enoxaparin Sodium (Lovenox -) 40 mg SQ DAILY [facility] Last Admin: 12/07/16 10:38 Dose: 40 mg Fentanyl (Sublimaze Injection -) 50 mcg IVPUSH [id number] PRN PRN Reason: PAIN Stop: 12/08/16 14:10 Last Admin: 12/05/16 16:25 Dose: 50 mcg Hydrochlorothiazide (Hctz -) 25 mg PO DAILY [facility] Last Admin: 12/07/16 10:39 Dose: 25 mg Piperacillin Sod/Tazobactam Sod (Zosyn 4.5gm Ivpb (Pre-Docked)) 100 mls @ 200 mls/hr IVPB Q8H-IV ALANNAH PRN Reason: Protocol Last Admin: 12/07/16 10:38 Dose: 200 mls/hr Ondansetron HCl (Zofran Injection) 4 mg IVPB Q6H PRN PRN Reason: NAUSEA Oxycodone HCl (Roxicodone -) 7.5 mg PO Q4H PRN PRN Reason: PAIN Last Admin: 12/07/16 07:40 Dose: 7.5 mg Pantoprazole Sodium (Protonix -) 40 mg PO DAILY [facility] Last Admin: 12/07/16 10:39 Dose: 40 mg Warfarin Sodium (Coumadin -) 5 mg PO DAILY@1800 [facility] Last Admin: 12/06/16 16:59 Dose: 5 mg - Objective Vital Signs: Vital Signs Temperature 98.6 F 12/07/16 10:00 Pulse Rate 72 12/07/16 10:00 Respiratory Rate 20 12/07/16 10:00 Blood Pressure 146/83 12/07/16 10:00 O2 Sat by Pulse Oximetry (%) 98 12/07/16 09:00 Constitutional: Yes: No Distress, Obese Eyes: Yes: Conjunctiva Clear Cardiovascular: Yes: Regular Rate and Rhythm, S1, S2 Respiratory: Yes: CTA Bilaterally Gastrointestinal: Yes: Normal Bowel Sounds, Soft. No: Tenderness Edema: Yes Labs: CBC, BMP 12/07/16 08:15 12/07/16 08:15 INR, PTT INR 1.18 (0.82-1.09) H D 12/07/16 08:15 Assessment/Plan Biliary pancreatitis improved Chronic cholecystitis s/p laparoscopic cholecystectomy Diabetes mellitus Switch to po Augmentin x48hr
--- NOTE | 2016-12-07 13:06 | PN ---
Progress Note, Physician - Current Medication List Current Medications: Active Medications Acetaminophen (Tylenol -) 650 mg PO Q4H PRN PRN Reason: FEVER OR PAIN Atenolol (Tenormin -) 25 mg PO DAILY [facility] Last Admin: 12/07/16 10:38 Dose: 25 mg Atorvastatin Calcium (Lipitor -) 40 mg PO HS [facility] Last Admin: 12/06/16 21:05 Dose: 40 mg Diltiazem HCl (Cardizem Cd -) 120 mg PO BID [facility] Last Admin: 12/07/16 10:39 Dose: 120 mg Enoxaparin Sodium (Lovenox -) 40 mg SQ DAILY [facility] Last Admin: 12/07/16 10:38 Dose: 40 mg Fentanyl (Sublimaze Injection -) 50 mcg IVPUSH [id number] PRN PRN Reason: PAIN Stop: 12/08/16 14:10 Last Admin: 12/05/16 16:25 Dose: 50 mcg Hydrochlorothiazide (Hctz -) 25 mg PO DAILY [facility] Last Admin: 12/07/16 10:39 Dose: 25 mg Piperacillin Sod/Tazobactam Sod (Zosyn 4.5gm Ivpb (Pre-Docked)) 100 mls @ 200 mls/hr IVPB Q8H-IV ALANNAH PRN Reason: Protocol Last Admin: 12/07/16 10:38 Dose: 200 mls/hr Ondansetron HCl (Zofran Injection) 4 mg IVPB Q6H PRN PRN Reason: NAUSEA Oxycodone HCl (Roxicodone -) 7.5 mg PO Q4H PRN PRN Reason: PAIN Last Admin: 12/07/16 07:40 Dose: 7.5 mg Pantoprazole Sodium (Protonix -) 40 mg PO DAILY [facility] Last Admin: 12/07/16 10:39 Dose: 40 mg Warfarin Sodium (Coumadin -) 5 mg PO DAILY@1800 [facility] Last Admin: 12/06/16 16:59 Dose: 5 mg - Objective Vital Signs: Vital Signs Temperature 98.6 F 12/07/16 10:00 Pulse Rate 72 12/07/16 10:00 Respiratory Rate 20 12/07/16 10:00 Blood Pressure 146/83 12/07/16 10:00 O2 Sat by Pulse Oximetry (%) 98 12/07/16 09:00 Constitutional: Yes: No Distress Eyes: Yes: Conjunctiva Clear Cardiovascular: Yes: Regular Rate and Rhythm, S1, S2 Respiratory: Yes: CTA Bilaterally Gastrointestinal: Yes: Normal Bowel Sounds, Soft, Abdomen, Obese. No: Tenderness Labs: CBC, BMP 12/07/16 08:15 12/07/16 08:15 INR, PTT INR 1.18 (0.82-1.09) H D 12/07/16 08:15 Assessment/Plan Biliary pancreatitis improved Chronic cholecystitis s/p laparoscopic cholecystectomy Diabetes mellitus Switch to po Augmentin x48hr
[2016-12-07] MEDS: WARFARIN NA 5 MG TABLET (UD) PO SCH (17:44)
[2016-12-07] MEDS: AMOX TR/POT CLAV 875MG/125MG TABLETS (FP) PO SCH (17:44)
[2016-12-07] MEDS: ATORVASTATIN CA 40 MG TABLET (FP) PO SCH (21:08)
[2016-12-08] MEDS: AMOX TR/POT CLAV 875MG/125MG TABLETS (FP) PO SCH ×2 (07:59→17:31)
[2016-12-08 08:52] LABS: MCH 32.4 pg (25.7-33.7); MCHC 34.1 g/dl (32.0-36.0); MEAN CELL VOLUME 95.2 fl (80-96); MEAN PLT VOLUME 8.6 fl (7.5-11.1); PLATELET COUNT 289 K/MM3 (134-434); RDW 13.8 % (11.6-15.6); WHITE BLOOD COUNT 11.1 K/mm3 (4.0-10.0)
--- NOTE | 2016-12-08 08:53 | PN ---
Progress Note, Physician Chief Complaint: feels fine wants to go home - Current Medication List Current Medications: Active Medications Acetaminophen (Tylenol -) 650 mg PO Q4H PRN PRN Reason: FEVER OR PAIN Amoxicillin/Clavulanate Potassium (Augmentin - 875mg Tablet) 1 tab PO BID@0800, 1730 [facility] Last Admin: 12/08/16 07:59 Dose: 1 tab Atenolol (Tenormin -) 25 mg PO DAILY [facility] Last Admin: 12/07/16 10:38 Dose: 25 mg Atorvastatin Calcium (Lipitor -) 40 mg PO HS [facility] Last Admin: 12/07/16 21:08 Dose: 40 mg Diltiazem HCl (Cardizem Cd -) 120 mg PO BID [facility] Last Admin: 12/07/16 21:09 Dose: 120 mg Enoxaparin Sodium (Lovenox -) 40 mg SQ DAILY [facility] Last Admin: 12/07/16 10:38 Dose: 40 mg Fentanyl (Sublimaze Injection -) 50 mcg IVPUSH [id number] PRN PRN Reason: PAIN Stop: 12/08/16 14:10 Last Admin: 12/05/16 16:25 Dose: 50 mcg Hydrochlorothiazide (Hctz -) 25 mg PO DAILY [facility] Last Admin: 12/07/16 10:39 Dose: 25 mg Ondansetron HCl (Zofran Injection) 4 mg IVPB Q6H PRN PRN Reason: NAUSEA Oxycodone HCl (Roxicodone -) 7.5 mg PO Q4H PRN PRN Reason: PAIN Last Admin: 12/07/16 07:40 Dose: 7.5 mg Pantoprazole Sodium (Protonix -) 40 mg PO DAILY [facility] Last Admin: 12/07/16 10:39 Dose: 40 mg Warfarin Sodium (Coumadin -) 5 mg PO DAILY@1800 [facility] Last Admin: 12/07/16 17:44 Dose: 5 mg - Objective Vital Signs: Vital Signs Temperature 98.7 F 12/08/16 06:00 Pulse Rate 56 L 12/08/16 06:00 Respiratory Rate 18 12/08/16 06:00 Blood Pressure 143/74 12/08/16 06:00 O2 Sat by Pulse Oximetry (%) 98 12/07/16 21:00 Constitutional: Yes: Calm Neck: Yes: WNL Cardiovascular: Yes: WNL Respiratory: Yes: WNL Gastrointestinal: Yes: WNL Labs: INR, PTT INR 1.18 (0.82-1.09) H D 12/07/16 08:15 Problem List - Problems (1) Atrial fibrillation Code(s): I48.91 - UNSPECIFIED ATRIAL FIBRILLATION (2) CHF (congestive heart failure) Code(s): I50.9 - HEART FAILURE, UNSPECIFIED (3) Gall bladder disease Code(s): K82.9 - DISEASE OF GALLBLADDER, UNSPECIFIED (4) Gallstone pancreatitis Code(s): K85.10 - BILIARY ACUTE PANCREATITIS WITHOUT NECROSIS OR INFECTION (5) Pancreatitis Code(s): K85.90 - ACUTE PANCREATITIS WITHOUT NECROSIS OR INFECTION, UNSP Qualifiers: Pancreatitis type: biliary (6) Abdominal pain Code(s): R10.9 - UNSPECIFIED ABDOMINAL PAIN Qualifiers: Abdominal location: epigastric Qualified Code(s): R10.13 - Epigastric pain (7) Diabetes Code(s): E11.9 - TYPE 2 DIABETES MELLITUS WITHOUT COMPLICATIONS Qualifiers: Diabetes mellitus type: type 2 (8) HTN (hypertension) Code(s): I10 - ESSENTIAL (PRIMARY) HYPERTENSION Qualifiers: Hypertension type: essential hypertension Qualified Code(s): I10 - Essential (primary) hypertension Assessment/Plan (1) Gall bladder disease Assessment/Plan: Operative Date: 12/05/16 Pre-Operative Diagnosis: cholelithiasis, abnormal lfts, choledocholithiasis, pancreatitis Operation: laparoscopic cholecystecotmy, lavage Findings: adhesions in midline at previous laparotomy, chronic cholecystitis Post-Operative Diagnosis: Same as Pre-op Surgeon: Yazan Hubbard Code(s): K82.9 - DISEASE OF GALLBLADDER, UNSPECIFIED (2) Pancreatitis Assessment/Plan: RESOLVED PO ABx GI AND SURGICAL CONSULT NOTED S/P CHOECYSTECTOMY Code(s): K85.90 - ACUTE PANCREATITIS WITHOUT NECROSIS OR INFECTION, UNSP Qualifiers: Pancreatitis type: biliary (3) Abdominal pain Code(s): R10.9 - UNSPECIFIED ABDOMINAL PAIN Qualifiers: Abdominal location: epigastric Qualified Code(s): R10.13 - Epigastric pain (4) Atrial fibrillation Assessment/Plan: LOVENOX WARARIN -> NEED INR >2 Code(s): I48.91 - UNSPECIFIED ATRIAL FIBRILLATION (5) HTN (hypertension) Assessment/Plan: STABLE ON CURRENT MEDS Code(s): I10 - ESSENTIAL (PRIMARY) HYPERTENSION Qualifiers: Hypertension type: essential hypertension Qualified Code(s): I10 - Essential (primary) hypertension (6) Hypokalemia Code(s): E87.6 - HYPOKALEMIA (7) Breast edema Assessment/Plan: RESOLVING MONITOR Code(s): N64.89 - OTHER SPECIFIED DISORDERS OF BREAST (8) CHF (congestive heart failure) Assessment/Plan: CARDIO ON CASE BNP 350 Code(s): I50.9 - HEART FAILURE, UNSPECIFIED DC 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
[2016-12-08 08:59] LABS: INR 1.15 (0.82-1.09); PROTHROMBIN TIME (PATIENT) 12.7 SEC (9.98-11.88)
[2016-12-08 09:02] LABS: ALBUMIN 2.8 g/dl (3.4-5.0); ANION GAP 11 (8-16); CALCIUM 8.9 mg/dL (8.5-10.1); CO2 29 mmol/L (21-32); GLUCOSE,RANDOM 110 mg/dL (74-106)
[2016-12-08 09:05] LABS: ALK PHOS 193 U/L (45-117); BILIRUBIN,TOTAL 1.2 mg/dL (0.2-1.0); COCKROFT - GAULT 142.4345; CREATININE 0.8 mg/dL (0.55-1.02); SGOT/AST 49 U/L (15-37); SGPT/ALT 85 U/L (12-78); TOT PROT 7.2 g/dl (6.4-8.2)
[2016-12-08] MEDS: ATENOLOL 25 MG TABLET (FP) PO SCH (10:21)
[2016-12-08] MEDS: PANTOPRAZOLE 40 MG TABLET (FP) PO SCH (10:21)
[2016-12-08] MEDS: HYDROCHLOROTHIAZIDE 25 MG TABLET (FP) PO SCH (10:22)
[2016-12-08] MEDS: ENOXAPARIN NA (PORCINE) 40 MG/0.4 ML DISP.SYRIN SQ SCH (10:22)
[2016-12-08] MEDS: WARFARIN NA 5 MG TABLET (UD) PO SCH (17:31)
[2016-12-08] MEDS: ATORVASTATIN CA 40 MG TABLET (FP) PO SCH (21:22)
[2016-12-09 07:44] LABS: BASOPHIL 0.7 % (0-2.0); EOSINOPHIL 1.3 % (0-4.5); MCH 32.1 pg (25.7-33.7); MCHC 33.6 g/dl (32.0-36.0); MEAN CELL VOLUME 95.4 fl (80-96); MEAN PLT VOLUME 8.3 fl (7.5-11.1); NEUTROPHILS 69.1 % (42.8-82.8); PLATELET COUNT 314 K/MM3 (134-434); RDW 13.6 % (11.6-15.6); WHITE BLOOD COUNT 8.4 K/mm3 (4.0-10.0)
[2016-12-09 07:54] LABS: INR 1.14 (0.82-1.09); PROTHROMBIN TIME (PATIENT) 12.6 SEC (9.98-11.88)
[2016-12-09 08:03] LABS: ALBUMIN 2.6 g/dl (3.4-5.0); ALK PHOS 339 U/L (45-117); ANION GAP 13 (8-16); CALCIUM 8.9 mg/dL (8.5-10.1); CO2 31 mmol/L (21-32); CREATININE 0.7 mg/dL (0.55-1.02); GLUCOSE,RANDOM 133 mg/dL (74-106); SGPT/ALT 103 U/L (12-78); TOT PROT 6.8 g/dl (6.4-8.2)
--- NOTE | 2016-12-09 08:12 | DS ---
Physical Examination Vital Signs: Vital Signs Temperature 97.8 F 12/09/16 05:30 Pulse Rate 66 12/09/16 05:30 Respiratory Rate 20 12/09/16 05:30 Blood Pressure 134/70 12/09/16 05:30 O2 Sat by Pulse Oximetry (%) 96 12/08/16 21:00 Findings/Remarks: CONSTIPATION Cardiovascular: Yes: Regular Rate and Rhythm Respiratory: Yes: Regular, CTA Bilaterally Gastrointestinal: Yes: Normal Bowel Sounds, Soft Labs: CBC, BMP 12/09/16 06:20 Discharge Summary Reason For Visit: PANCREATITIS VOMITING AFIB Current Active Problems Atrial fibrillation (Acute) Breast edema (Acute) CHF (congestive heart failure) (Acute) Gall bladder disease (Acute) Gallstone pancreatitis (Acute) History of acute cholecystitis (Acute) Hypokalemia (Acute) Pancreatitis (Acute) Vomiting (Acute) Hospital Course: 66 year old morbidly obese female, with a significant past medical history of Atrial Fibrillation (On Coumadin), HTN, NIDDM, who presents to the emergency department with nausea, vomiting since 2 PM . Patient states she only ate chicken soup during the day. Patient states she is need of gall bladder removal surgery. She was here in October for abdominal pain. Gallstones were shown on Ultrasound exam. LESS PAIN THIS AM--NO VOMITING - Past Medical History Cardiovascular: Yes: AFIB (paroxysmal), Pulmonary Hypertension, HTN Pulmonary: Yes: Sleep Apnea (on CPAP) Gastrointestinal: Yes: Constipation, GERD, Hemorrhoids Endocrine: Yes: Diabetes Mellitus - Past Surgical History Past Surgical History: Yes: Hysterectomy - Problems (1) Gall bladder disease Assessment/Plan: PER SURGERY Operative Date: 12/05/16 Pre-Operative Diagnosis: cholelithiasis, abnormal lfts, choledocholithiasis, pancreatitis Operation: laparoscopic cholecystecotmy, lavage Findings: adhesions in midline at previous laparotomy, chronic cholecystitis Post-Operative Diagnosis: Same as Pre-op Surgeon: Yazan Hubbard Code(s): K82.9 - DISEASE OF GALLBLADDER, UNSPECIFIED (2) Pancreatitis Assessment/Plan: RESOLVED CT SCAN NOTED OFF IV ABX GI AND SURGICAL CONSULT NOTED UNABLE TO DO MRCP LFT IMPROVING-- S/P CHOECYSTECTOMY Code(s): K85.90 - ACUTE PANCREATITIS WITHOUT NECROSIS OR INFECTION, UNSP Qualifiers: Pancreatitis type: biliary (3) Abdominal pain Code(s): R10.9 - UNSPECIFIED ABDOMINAL PAIN Qualifiers: Abdominal location: epigastric Qualified Code(s): R10.13 - Epigastric pain (4) Atrial fibrillation Assessment/Plan: -RESUME IF OK WITH SURGERY MONITOR INR Code(s): I48.91 - UNSPECIFIED ATRIAL FIBRILLATION (5) HTN (hypertension) Assessment/Plan: STABLE ON CURRENT MEDS START HEPARIN EKG Code(s): I10 - ESSENTIAL (PRIMARY) HYPERTENSION Qualifiers: Hypertension type: essential hypertension Qualified Code(s): I10 - Essential (primary) hypertension (6) Abnormal LFT MONITOR IF IMPROVING WILL DC HOME AND FOLLOW OUTPATIENT (7) Breast edema Assessment/Plan: RESOLVING DC IV MONITOR Code(s): N64.89 - OTHER SPECIFIED DISORDERS OF BREAST (8) CHF (congestive heart failure) Assessment/Plan: CXR BNP DC IVF Code(s): I50.9 - HEART FAILURE, UNSPECIFIED Condition: Improved - Instructions Referrals: Bobbi Fried MD [Primary Care Provider] - Disposition: HOME - Home Medications Comprehensive Discharge Medication List: Ambulatory Orders Hydrochlorothiazide [Hctz -] 25 mg PO DAILY 03/16/12 Metformin HCl [Glucophage -] 500 mg PO DAILY 12/02/13 Atenolol [Tenormin -] 25 mg PO DAILY 04/21/15 Atorvastatin Ca [Lipitor] 40 mg PO DAILY 04/21/15 Warfarin Sodium 9 mg PO ASDIR 01/19/16 Diltiazem Cd [Cardizem Cd -] 120 mg PO BID 08/21/16 Famotidine [Pepcid -] 20 mg PO BID #14 tablet 10/26/16 Pantoprazole Sodium [Protonix] 40 mg PO DAILY #30 tablet. 10/26/16 Amox-Tr/K Cl [Augmentin 875-125mg Tablet -] 1 tab PO BID@0800,1730 #4 tablet 06/17
[2016-12-09 08:32] LABS: BILIRUBIN,TOTAL 1.1 mg/dL (0.2-1.0); SGOT/AST 127 U/L (15-37)
[2016-12-09] MEDS: AMOX TR/POT CLAV 875MG/125MG TABLETS (FP) PO SCH ×2 (08:44→17:50)
[2016-12-09] MEDS ORDERED: BISACODYL 5 MG TABLET.DR (FP) PO ONE (09:00)
[2016-12-09] MEDS: ENOXAPARIN NA (PORCINE) 40 MG/0.4 ML DISP.SYRIN SQ SCH (09:21)
[2016-12-09] MEDS: PANTOPRAZOLE 40 MG TABLET (FP) PO SCH (09:21)
[2016-12-09] MEDS: ATENOLOL 25 MG TABLET (FP) PO SCH (09:21)
[2016-12-09] MEDS: HYDROCHLOROTHIAZIDE 25 MG TABLET (FP) PO SCH (09:21)
[2016-12-09 12:35] LABS: BILIRUBIN,DIRECT 0.5 mg/dL (0.0-0.2)
--- NOTE | 2016-12-09 14:15 | PATH ---
Surgical Pathology Report Patient Name: FAB YEN [facility]. Rec. #: [id number] /Age/Gender: 1950 (Age: 66) / F Account: [id number] Location: [address] [place] [address]/[facility] Taken: 12/05/2016 Received: 12/06/2016 Reported: 12/09/2016 Physicians: Yazan Hubbard M.D. Specimen(s) Received GALLBLADDER Clinical History Cholelithiasis, choledocholithiasis, abnormal liver function test Final Diagnosis GALLBLADDER, CHOLECYSTECTOMY: CHRONIC CHOLECYSTITIS AND CHOLELITHIASIS. Electronically Signed Raheem Fields M.D. Gross Description Received in formalin, labeled "gallbladder" is a 10.0 x 3.0 x 2.7 cm gallbladder with a 0.2 cm in length portion of cystic duct attached. The outer surface is mahoney-maharaj and varies from smooth to shaggy. The lumen contains green, tenacious bile as well as numerous yellow, irregular to fragmented choleliths ranging from 0.1-1.1 cm in greatest dimension. The mucosa is mahoney and velvety with focal erosions. The wall of the gallbladder averages 0.1 cm in thickness. [place] Strip Gauger sections are submitted in one cassette. 12/06/201612/06/2016
[2016-12-09] MEDS: ATORVASTATIN CA 40 MG TABLET (FP) PO SCH (21:45)
[2016-12-10] MEDS ORDERED: PT OWN MED DRAWER 7, Y5N ONE (06:51)
--- NOTE | 2016-12-10 08:14 | PN ---
Progress Note, Physician History of Present Illness: FEELS BETTER S/P CHOLECYSTECTOMY - Current Medication List Current Medications: Active Medications Acetaminophen (Tylenol -) 650 mg PO Q4H PRN PRN Reason: FEVER OR PAIN Amoxicillin/Clavulanate Potassium (Augmentin - 875mg Tablet) 1 tab PO BID@0800, 1730 [facility] Last Admin: 12/09/16 17:50 Dose: 1 tab Atenolol (Tenormin -) 25 mg PO DAILY [facility] Last Admin: 12/09/16 09:21 Dose: 25 mg Atorvastatin Calcium (Lipitor -) 40 mg PO HS [facility] Last Admin: 12/09/16 21:45 Dose: 40 mg Diltiazem HCl (Cardizem Cd -) 120 mg PO BID [facility] Last Admin: 12/09/16 21:45 Dose: 120 mg Enoxaparin Sodium (Lovenox -) 40 mg SQ DAILY [facility] Last Admin: 12/09/16 09:21 Dose: 40 mg Hydrochlorothiazide (Hctz -) 25 mg PO DAILY [facility] Last Admin: 12/09/16 09:21 Dose: 25 mg Ondansetron HCl (Zofran Injection) 4 mg IVPB Q6H PRN PRN Reason: NAUSEA Pantoprazole Sodium (Protonix -) 40 mg PO DAILY [facility] Last Admin: 12/09/16 09:21 Dose: 40 mg - Objective Vital Signs: Vital Signs Temperature 98.4 F 12/10/16 05:36 Pulse Rate 60 12/10/16 05:36 Respiratory Rate 20 12/10/16 05:36 Blood Pressure 138/60 12/10/16 05:36 O2 Sat by Pulse Oximetry (%) 99 12/09/16 21:00 Cardiovascular: Yes: Regular Rate and Rhythm Respiratory: Yes: Regular, CTA Bilaterally Gastrointestinal: Yes: Normal Bowel Sounds, Soft Labs: CBC, BMP 12/09/16 06:20 INR, PTT INR 1.14 (0.82-1.09) 12/09/16 06:20 Problem List - Problems (1) Gall bladder disease Assessment/Plan: PER SURGERY Operative Date: 12/05/16 Pre-Operative Diagnosis: cholelithiasis, abnormal lfts, choledocholithiasis, pancreatitis Operation: laparoscopic cholecystecotmy, lavage Findings: adhesions in midline at previous laparotomy, chronic cholecystitis Post-Operative Diagnosis: Same as Pre-op Surgeon: Yazan Hubbard Code(s): K82.9 - DISEASE OF GALLBLADDER, UNSPECIFIED (2) Pancreatitis Assessment/Plan: RESOLVED CT SCAN NOTED OFF IV ABX GI AND SURGICAL CONSULT NOTED UNABLE TO DO MRCP LFT IMPROVING-- S/P CHOECYSTECTOMY Code(s): K85.90 - ACUTE PANCREATITIS WITHOUT NECROSIS OR INFECTION, UNSP Qualifiers: Pancreatitis type: biliary (3) Abdominal pain Code(s): R10.9 - UNSPECIFIED ABDOMINAL PAIN Qualifiers: Abdominal location: epigastric Qualified Code(s): R10.13 - Epigastric pain (4) Atrial fibrillation Assessment/Plan: -RESUME IF OK WITH SURGERY MONITOR INR Code(s): I48.91 - UNSPECIFIED ATRIAL FIBRILLATION (5) HTN (hypertension) Assessment/Plan: STABLE ON CURRENT MEDS START HEPARIN EKG Code(s): I10 - ESSENTIAL (PRIMARY) HYPERTENSION Qualifiers: Hypertension type: essential hypertension Qualified Code(s): I10 - Essential (primary) hypertension (6) Hypokalemia Code(s): E87.6 - HYPOKALEMIA (7) Breast edema Code(s): N64.89 - OTHER SPECIFIED DISORDERS OF BREAST (8) CHF (congestive heart failure) Assessment/Plan: CXR BNP DC IVF Code(s): I50.9 - HEART FAILURE, UNSPECIFIED (9) Abnormal LFTs Assessment/Plan: FOLLOW LEVELS IF IMPROVING OUTPATIENT F/U Code(s): R79.89 - OTHER SPECIFIED ABNORMAL FINDINGS OF BLOOD CHEMISTRY
[2016-12-10 08:34] LABS: COCKROFT - GAULT 184.2545; CREATININE 0.6 mg/dL (0.55-1.02); GLUCOSE,RANDOM 129 mg/dL (74-106)
[2016-12-10 08:35] LABS: ALBUMIN 2.6 g/dl (3.4-5.0); ALK PHOS 319 U/L (45-117); ANION GAP 10 (8-16); BILIRUBIN,TOTAL 0.9 mg/dL (0.2-1.0); CALCIUM 8.9 mg/dL (8.5-10.1); CO2 34 mmol/L (21-32); SGOT/AST 96 U/L (15-37); SGPT/ALT 102 U/L (12-78); TOT PROT 6.8 g/dl (6.4-8.2)
[2016-12-10] MEDS: AMOX TR/POT CLAV 875MG/125MG TABLETS (FP) PO SCH (09:08)
[2016-12-10 09:10] VITALS: BP 141/60
[2016-12-10] MEDS ORDERED: POLYETHYLENE GLYCOL 3350 119 GM BTL PO SCH (10:00)
[2016-12-10] MEDS: HYDROCHLOROTHIAZIDE 25 MG TABLET (FP) PO SCH (10:07)
[2016-12-10] MEDS: PANTOPRAZOLE 40 MG TABLET (FP) PO SCH (10:07)
[2016-12-10] MEDS: ENOXAPARIN NA (PORCINE) 40 MG/0.4 ML DISP.SYRIN SQ SCH ×2 (10:07→10:54)
[2016-12-10] MEDS: ATENOLOL 25 MG TABLET (FP) PO SCH (10:07)
[2016-12-10] MEDS ORDERED: POTASSIUM CHLORIDE TABS 20 MEQ TABLET.ER (FP) PO ONE (11:00)
[2016-12-10 14:35] VITALS: PULSE 58; TEMP 98.3
[2016-12-10] MEDS ORDERED: WARFARIN NA 3 MG TABLET PO SCH (18:00)
== END 2016-12-10 16:25 | disposition home or self-care (01) | DRG 417 ==
LOC: JER 20:06 → JERBED 22:59 → UNDOADMIN 23:03 → JERBED 23:03 → J6S 23:40 → JERBED 23:40
PROVIDERS: ADMIT Family Medicine; ATTEND Family Medicine
PROC: 0FT44ZZ Resection of Gallbladder, Percutaneous Endoscopic Approach (ICD-10-PCS; principal; 2016-12-05 12:00)
DX: K80.10 Calculus of gallbladder with chronic cholecystitis without obstruction (principal); K85.90 Acute pancreatitis without necrosis or infection, unspecified; Z68.43 Body mass index [BMI] 50.0-59.9, adult; E11.9 Type 2 diabetes mellitus without complications; E66.01 Morbid (severe) obesity due to excess calories; Z71.3 Dietary counseling and surveillance; G47.39 Other sleep apnea; K21.9 Gastro-esophageal reflux disease without esophagitis; E87.6 Hypokalemia; I11.0 Hypertensive heart disease with heart failure; N64.89 Other specified disorders of breast; R10.13 Epigastric pain; K59.09 Other constipation; K64.8 Other hemorrhoids; K20.8 Other esophagitis; K44.9 Diaphragmatic hernia without obstruction or gangrene; I27.2 Other secondary pulmonary hypertension; I48.0 Paroxysmal atrial fibrillation; Z79.01 Long term (current) use of anticoagulants; Z96.653 Presence of artificial knee joint, bilateral
CPT/HCPCS: 36415; 71010-TC; 71020-TC; 74160-TC; 80048; 80053; 81003; 81015; 82150; 82248; 82977; 83690; 83880; 85025; 85027; 85610; 86850; 86900; 86901; 87040; 87086; 88304-TC; 90670; 93005; 93010; 94010; 94760; 97116-GP; 97161-GP; 99283-25; J1644; Q9967

== ENCOUNTER 2018-07-20 11:15 | Emergency (ER) | payer OTHER, BC ==
[2018-07-20 11:30] VITALS: TEMP 99.1; BMI 51.6
--- NOTE | 2018-07-20 12:31 | PDOC ---
History of Present Illness - General Chief Complaint: Rectal Bleed Stated Complaint: RECTAL BLEEDING (PCP SENT) Time Seen by Provider: 07/20/18 12:06 History Source: Patient - History of Present Illness Initial Comments: 07/20/18 12:30 68F with pmh of a-fib on Eliquis, HTN, pancreatitis and hemorrhoids. Presenting today for 2 weeks of rectal bleeding whenever she moves her bowels. States that the blood is bright red and fills up the bowl. Denies feelings of weakness, sob, palpitation fever, constipation, n/v/d. No abdominal pain or rectal pain. PCP: Dr. Fried. Past History - Past Medical History Allergies/Adverse Reactions: Allergies Allergy/AdvReac Type Severity Reaction Status Date / Time No Known Allergies Allergy Verified 07/20/18 11:26 Home Medications: Ambulatory Orders Hydrochlorothiazide [Hctz -] 25 mg PO DAILY 03/16/12 metFORMIN HCL [Glucophage -] 500 mg PO DAILY 12/02/13 Atenolol [Tenormin -] 50 mg PO DAILY 04/21/15 Atorvastatin Ca [Lipitor] 40 mg PO HS 04/21/15 Diltiazem Cd [Cardizem Cd -] 120 mg PO DAILY 08/21/16 Warfarin Sodium 6 mg PO ASDIR 10/21/17 Warfarin Sodium 8 mg PO ASDIR 10/21/17 Anemia: Yes Asthma: No Cancer: No Cardiac Disorders: Yes (HISTORY OF AFIB WITH CARDIOVERSION) CVA: No COPD: No CHF: No Dementia: No Diabetes: Yes (DIA2010) GI Disorders: Yes (REFLUX,ESOPHAGITIS,HIATAL HERNIA) Disorders: No HTN: Yes Hypercholesterolemia: Yes Liver Disease: No Seizures: No Thyroid Disease: No - Surgical History Abdominal Surgery: No Appendectomy: No Cardiac Surgery: No Cholecystectomy: Yes (11/2016) Lung Surgery: No Neurologic Surgery: No Orthopedic Surgery: Yes (ARMOND KNEE REPLACEMENT ) - Suicide/Smoking/Psychosocial Hx Smoking Status: No Smoking History: Never smoked Have you smoked in the past 12 months: No Number of Cigarettes Smoked Daily: 0 Hx Alcohol Use: No Drug/Substance Use Hx: No Substance Use Type: Alcohol Hx Substance Use Treatment: No Review of Systems - Review of Systems Able to Perform ROS?: Yes Is the patient limited [place] proficient: No Constitutional: No: Symptoms Reported HEENTM: No: Symptoms Reported Respiratory: No: Symptoms reported Cardiac (ROS): No: Symptoms Reported ABD/GI: Yes: Symptoms Reported, See HPI, Rectal Bleeding. No: Abdominal cramping : No: Symptoms Reported Musculoskeletal: No: Symptoms Reported Integumentary: No: Symptoms Reported All Other Systems: Reviewed and Negative *Physical Exam - Vital Signs Last Vital Signs Temp Pulse Resp BP Pulse Ox 99.1 F 84 18 180/71 H 99 07/20/18 11:25 07/20/18 11:25 07/20/18 11:25 07/20/18 11:25 07/20/18 11:25 - Physical Exam General Appearance: Yes: Appropriately Dressed. No: Apparent Distress HEENT: positive: EOMI, MAHAD, Normal ENT Inspection Respiratory/Chest: positive: Lungs Clear, Normal Breath Sounds. negative: Chest Tender, Respiratory Distress Cardiovascular: positive: Regular Rhythm, Regular Rate, S1, S2 Vascular Pulses: Dorsalis-Pedis (R): 2+, Doralis-Pedis (L): 2+ Gastrointestinal/Abdominal: positive: Normal Bowel Sounds, Soft, Protuberent. negative: Tender Rectal Exam: positive: hemorrhoids (external, not engorged.). negative: melena Musculoskeletal: positive: Normal Inspection. negative: CVA Tenderness Extremity: positive: Normal Capillary Refill, Normal Inspection, Normal Range of Motion Integumentary: positive: Normal Color, Warm Neurologic: positive: Fully Oriented, Alert, Normal Mood/Affect, Normal Response , Motor Strength 5/5 ED Treatment Course - LABORATORY CBC & Chemistry Diagram: 07/20/18 12:50 07/20/18 12:50 Medical Decision Making - Medical Decision Making 07/20/18 13:39 68F with dm2, afib on eliquis, presenting with BRBPR for the past 2 weeks upon bowel movement. No blood seen in rectal exam but external hemorrhoids seen, not bleeding. cbc WNL. Spoke to Dr. Fried who advised holding dose of Eliquis and have her make appointment in the office. EKG: Sinus Bradycardia. *DC/Admit/Observation/Transfer Diagnosis at time of Disposition: BRBPR (bright red blood per rectum) - Discharge Dispostion Disposition: HOME Condition at time of disposition: Improved Decision to Admit order: No - Referrals - Patient Instructions Printed Discharge Instructions: DI for Hemorrhoids, DI for Rectal Bleeding Additional Instructions: Follow up with Dr. Fried by calling him upon discharge In the meantime, stop taking your Eliquis. Come back to the ER for any new, worsening or concerning symptoms. - Post Discharge Activity
[2018-07-20 13:10] LABS: BASO % 0.9 % (0-2.0); EOS % 3.1 % (0-4.5); HEMATOCRIT 32.1 % (32.4-45.2); HEMOGLOBIN 11.1 GM/dL (10.7-15.3); LYMPH % 36.1 % (8-40); MCH 32.8 pg (25.7-33.7); MCHC 34.6 g/dl (32.0-36.0); MEAN CELL VOLUME 94.9 fl (80-96); MEAN PLT VOLUME 8.7 fl (7.5-11.1); MONO % 6.6 % (3.8-10.2); NEUT % 53.3 % (42.8-82.8); PLATELET COUNT 272 K/MM3 (134-434); RBC 3.38 M/mm3 (3.60-5.2); RDW 14.4 % (11.6-15.6); WHITE BLOOD COUNT 6.2 K/mm3 (4.0-10.0)
[2018-07-20 13:19] LABS: INR 1.13 (0.83-1.09); PROTHROMBIN TIME (PATIENT) 13.4 SEC (9.7-13.0)
[2018-07-20 13:33] LABS: ALBUMIN 3.4 g/dl (3.4-5.0); ALK PHOS 88 U/L (45-117); ANION GAP 8 MMOL/L (8-16); BILIRUBIN,TOTAL 0.4 mg/dL (0.2-1); BLOOD UREA NITROGEN 16 mg/dL (7-18); CALCIUM 8.9 mg/dL (8.5-10.1); CHLORIDE 105 mmol/L (98-107); CO2 29 mmol/L (21-32); CREATININE 0.7 mg/dL (0.55-1.3); GLUCOSE,RANDOM 108 mg/dL (74-106); POTASSIUM 3.6 mmol/L (3.5-5.1); SGOT/AST 14 U/L (15-37); SGPT/ALT 17 U/L (13-61); SODIUM 142 mmol/L (136-145); TOT PROT 7.1 g/dl (6.4-8.2)
[2018-07-20 13:58] VITALS: BP 139/68; PULSE 58
--- NOTE | 2018-07-20 14:24 | PDOC ---
Attending Attestation - HPI HPI: 07/20/18 14:30 The patient is a 68 year old female with a past medical history of Afib (on eliquis), pancreatitis, cholecystitis, and hemorrhoids who presents to the emergency department for evaluation of a 3 week history of bright red blood per rectum. Patient was sent by Dr. Fried secondary to multiple episodes of large output of blood with bowel movements, to r/o anemia. Denies chest pain, abdominal pain, dyspnea or dizziness. <Lottie Rea - Last Filed: 07/20/18 14:30> - Resident Resident Name: SibleyTomas - ED Attending Attestation I have performed the following: I have examined & evaluated the patient, The case was reviewed & discussed with the resident, I agree w/resident's findings & plan, Exceptions are as noted - Physicial Exam PE: GENERAL: Awake, alert, and fully oriented, in no acute distress HEAD: No signs of trauma EYES: PERRLA, EOMI, sclera anicteric, conjunctiva clear ENT: Auricles normal inspection, hearing grossly normal, nares patent, oropharynx clear without exudates. Moist mucosa NECK: Normal ROM, supple, no lymphadenopathy, JVD, or masses LUNGS: Breath sounds equal, clear to auscultation bilaterally. No wheezes, and no crackles HEART: Regular rate and rhythm, normal S1 and S2, no murmurs, rubs or gallops ABDOMEN: Soft, nontender, normoactive bowel sounds. No guarding, no rebound. No masses EXTREMITIES: Normal range of motion, no edema. No clubbing or cyanosis. No cords, erythema, or tenderness NEUROLOGICAL: Cranial nerves II through XII grossly intact. Normal speech, normal gait SKIN: Warm, Dry, normal turgor, no rashes or lesions noted. - Medical Decision Making Pt with similar INR to prior. D/w Dr. Fried, will hold eliquis for a few days and f/u outpatient. <Sharon Saucedo - Last Filed: 07/20/18 15:47> Attestations - Attestations Documentation prepared by Lottie Rea, acting as medical billing specialist for Sharon Saucedo MD. <Lottie Rea - Last Filed: 07/20/18 14:30>
--- NOTE | 2018-07-20 18:23 | EKG ---
Test Reason : Blood Pressure : / mmHG Vent. Rate : 059 BPM Atrial Rate : 059 BPM P-R Int : 162 ms QRS Dur : 080 ms QT Int : 420 ms P-R-T Axes : 045 -04 036 degrees QTc Int : 415 ms SINUS BRADYCARDIA MODERATE VOLTAGE CRITERIA FOR LVH, MAY BE NORMAL VARIANT BORDERLINE ECG WHEN COMPARED WITH ECG OF 30-NOV-2016 22:53, T WAVE VARIATION Confirmed by CHRIS MONTENEGRO MD ([id number]) on 07/20/2018 6:23:11 PM Referred By: Confirmed By:CHRIS MONTENEGRO MD
== END 2018-07-20 13:58 | disposition home or self-care (01) ==
LOC: JER 11:15
DX: K62.5 Hemorrhage of anus and rectum (principal); K64.4 Residual hemorrhoidal skin tags; I10 Essential (primary) hypertension; E78.00 Pure hypercholesterolemia, unspecified; E11.9 Type 2 diabetes mellitus without complications; Z79.84 Long term (current) use of oral hypoglycemic drugs; I48.91 Unspecified atrial fibrillation; Z79.01 Long term (current) use of anticoagulants
CPT/HCPCS: 36415; 80053; 82272; 85025; 85610; 85730; 86850; 86900; 86901; 93005; 93010; 99281-25

== ENCOUNTER 2018-12-31 08:41 | Day surgery (SDC) | payer OTHER, BC ==
[2018-12-30 12:34] VITALS: BMI 51.0
[2018-12-31 11:31] VITALS: TEMP 97.8
[2018-12-31 12:18] VITALS: BP 137/66; PULSE 57
--- NOTE | 2019-01-01 17:38 | PATH ---
Surgical Pathology Report Patient Name: FAB YEN [facility] [place]. Rec. #: [id number] /Age/Gender: 1950 (Age: 68) / F Account: [id number] Location: [facility] Taken: 12/31/2018 Received: 12/31/2018 Reported: 01/01/2019 Physicians: Kurtis Ybarra D.O. Specimen(s) Received A: TRANSVERSE COLON POLYP B: HEPATIC FLEXURE POLYP C: PROXIMAL TRANSVERSE COLON Clinical History History of colon polyps, rectal bleeding Postoperative diagnosis: Colon polyps, diverticulosis, hemorrhoids Final Diagnosis A. TRANSVERSE COLON POLYP, POLYPECTOMY: TUBULAR ADENOMA. B. HEPATIC FLEXURE POLYP, BIOPSY: POLYPOID COLONIC MUCOSA WITH SURFACE HYPERPLASTIC CHANGE, INCREASED PIGMENTED MACROPHAGES, AND REACTIVE LYMPHOID AGGREGATE IN THE LAMINA PROPRIA. C. PROXIMAL TRANSVERSE COLON POLYP, BIOPSY: POLYPOID COLONIC MUCOSA WITH SURFACE HYPERPLASTIC CHANGE, FOCAL ACUTE INFLAMMATION, INCREASED PIGMENTED MACROPHAGES, AND REACTIVE LYMPHOID AGGREGATE IN THE LAMINA PROPRIA. Electronically Signed Gold Greenberg M.D. Gross Description A. Received in formalin, labeled "transverse colon polyp" is a mahoney, polypoid portion of soft tissue measuring 0.5 cm. in greatest dimension. The specimen is submitted in toto in one cassette. B. Received in formalin, labeled "hepatic flexure polyp" is a mahoney, irregular portion of soft tissue measuring 0.7 cm. in greatest dimension. The specimen is submitted in toto in one cassette. C. Received in formalin, labeled "proximal transverse colon polyp biopsy" is a mahoney, irregular portion of soft tissue measuring 0.5 cm. in greatest dimension. The specimen is submitted in toto in one cassette. /12/31/2018 saudi12/31/2018
== END 2018-12-31 12:45 | disposition home or self-care (01) ==
LOC: JASU-ENDO 08:41
PROVIDERS: ATTEND Internal Medicine Gastroenterology
PROC: 0DBL8ZX Excision of Transverse Colon, Via Natural or Artificial Opening Endoscopic, Diagnostic (ICD-10-PCS; principal; 2018-12-31 09:45)
DX: Z12.11 Encounter for screening for malignant neoplasm of colon (principal); Z86.010 Personal history of colon polyps; K57.30 Diverticulosis of large intestine without perforation or abscess without bleeding; K63.89 Other specified diseases of intestine; K64.8 Other hemorrhoids; D12.3 Benign neoplasm of transverse colon
CPT/HCPCS: 82962; 88305-TC